=== PATIENT | female | born 1965 | race Caucasian/White ===

== ENCOUNTER 2019-12-09 13:31 | Outpatient (REF) | payer OTHER, SELFPAY ==
--- NOTE | 2019-12-09 | MM_ITS ---
EXAMINATION: MM DIAGNOSTIC DIGITAL BREAST TOMOSYNTHESIS, LEFT CLINICAL INFORMATION: Recall from screening for asymmetric density central left breast on CC view, suspected to represent probable summation artifact. COMPARISON: Mammography: 11/23/2019, 11/17/2018, 10/02/2017 TECHNIQUE: Digital breast tomosynthesis is performed. 2D images are generated from the tomosynthesis. The following views are obtained: Rolled CC x2, spot CC. FINDINGS: The breasts are heterogeneously dense, which may obscure small masses (ACR BI-RADS breast composition Category c). The additional views show no persistent asymmetric density. There is no mass or architectural abnormality. No developing density. Results are discussed with the patient at time of visit. IMPRESSION: Additional views show no persistent asymmetric density. No significant changes from prior studies. ASSESSMENT: BI-RADS 1: Negative RECOMMENDATION: Routine annual mammography screening. This patient's information was entered into a reminder system with a target due date for their next mammogram.
== END 2019-12-09 13:32 | disposition home or self-care (01) ==
LOC: HO.MAMMO 13:31
PROVIDERS: PCP Internal Medicine; Visit Provider Internal Medicine
DX: N64.89 Other specified disorders of breast (principal)
CPT/HCPCS: 77065

== ENCOUNTER 2020-01-10 14:01 | Outpatient (REF) | payer OTHER, SELFPAY ==
[2020-01-10 14:24] LABS: COVID-19 Test Negative (Negative); IDNOW Serial# 55D5AD1C
== END 2020-01-10 14:02 | disposition home or self-care (01) ==
LOC: HO.EMPCOV 14:01
PROVIDERS: Visit Provider Internal Medicine
DX: Z20.828 Contact with and (suspected) exposure to other viral communicable diseases (principal)
CPT/HCPCS: 87635; C9803

== ENCOUNTER 2020-01-25 08:40 | Outpatient (REF) | payer OTHER, SELFPAY ==
[2020-01-25 10:04] LABS: COVID-19 Test Negative (Negative); IDNOW Serial# 55D5AD1C
== END 2020-01-25 08:41 | disposition home or self-care (01) ==
LOC: HO.EMPCOV 08:40
PROVIDERS: Visit Provider Internal Medicine
DX: Z20.828 Contact with and (suspected) exposure to other viral communicable diseases (principal)
CPT/HCPCS: 87635; C9803

== ENCOUNTER 2020-02-28 11:19 | Outpatient (REF) | payer OTHER, SELFPAY ==
[2020-02-28 11:53] LABS: COVID-19 Test Negative (Negative); IDNOW Serial# 55D5AD1C
== END 2020-02-28 11:20 | disposition home or self-care (01) ==
LOC: HO.EMPCOV 11:19
PROVIDERS: Visit Provider Internal Medicine
DX: Z20.822 Contact with and (suspected) exposure to COVID-19 (principal)
CPT/HCPCS: 36415; 87635; C9803

== ENCOUNTER 2020-03-10 08:43 | Outpatient (REF) | payer OTHER, SELFPAY ==
[2020-03-10 09:01] LABS: COVID-19 Test Negative (Negative); IDNOW Serial# 55D5AD1C
== END 2020-03-10 08:44 | disposition home or self-care (01) ==
LOC: HO.EMPCOV 08:43
PROVIDERS: Visit Provider Internal Medicine
DX: Z20.822 Contact with and (suspected) exposure to COVID-19 (principal)
CPT/HCPCS: 36415; 87635; C9803

== ENCOUNTER 2020-05-04 08:54 | Outpatient (REF) | payer OTHER, SELFPAY ==
[2020-05-04 09:25] LABS: Mean Corpuscular Hemoglobin 31.8 pg (27.0-33.0); Red Cell Distribution Width 12.5 % (11.0-16.0)
[2020-05-04 09:27] LABS: Basophils Percent Auto 0.3 % (0-2); Eosinophils Absolute Auto 0.2 X10*3/uL (0.0-0.4); Eosinophils Percent Auto 2.6 % (0-4); Hematocrit 42.9 % (37-47); Hemoglobin 14.2 g/dl (12.0-16.0); Imm Gran Abs Auto 0.02 X10*3/uL (0.00-0.03); Imm Gran Pct Auto 0.3 % (0.0-0.4); Lymphocytes Absolute Auto 1.7 X10*3/uL (1.2-4.9); Lymphocytes Percent Auto 27.9 % (20-40); Mean Corpuscular HGB Conc 33.1 g/dl (31.0-35.0); Mean Platelet Volume 10.2 fL (9.4-12.3); Monocytes Absolute Auto 0.5 X10*3/uL (0.1-1.2); Monocytes Percent Auto 7.7 % (2-11); Neutrophils Absolute Auto 3.7 X10*3/uL (2.0-8.3); Neutrophils Percent Auto 61.2 % (45-73); Platelet Count 148 X10*3/uL (160-400); Red Blood Count 4.47 X10*6/uL (4.20-5.50); White Blood Count 6.1 X10*3/uL (4.8-10.8)
[2020-05-04 09:29] LABS: MANUAL DIFF FLAG NO
[2020-05-04 09:50] LABS: Alanine Aminotransferase 56 U/L (0-31); Albumin Level 4.3 g/dL (3.5-5.0); Alkaline Phosphatase 152 U/L (39-117); Aspartate Amino Transferase 33 U/L (5-31); Bilirubin Direct 0.3 mg/dL (0.0-0.5); Bilirubin Total 0.7 mg/dL (0.0-1.0); Total Protein 6.8 g/dL (6.5-8.0)
== END 2020-05-04 08:55 | disposition home or self-care (01) ==
LOC: HO.LAB 08:54
PROVIDERS: PCP Internal Medicine; Visit Provider Internal Medicine
DX: D47.3 Essential (hemorrhagic) thrombocythemia (principal); R79.89 Other specified abnormal findings of blood chemistry
CPT/HCPCS: 36415; 80076; 85025

== ENCOUNTER 2020-07-31 07:30 | Outpatient (REF) | payer OTHER, SELFPAY ==
[2020-07-31 09:20] LABS: Alanine Aminotransferase 30 U/L (0-31); Albumin Level 4.3 g/dL (3.5-5.0); Alkaline Phosphatase 127 U/L (39-117); Aspartate Amino Transferase 24 U/L (5-31); Bilirubin Direct 0.2 mg/dL (0.0-0.5); Bilirubin Total 0.8 mg/dL (0.0-1.0); Cholesterol 164 mg/dL; HDL Cholesterol 53 mg/dL; LDL Cholesterol Calculated 97 mg/dl; Total Protein 6.7 g/dL (6.5-8.0); Triglycerides 70 mg/dL
== END 2020-07-31 07:31 | disposition home or self-care (01) ==
LOC: HO.LAB 07:30
PROVIDERS: PCP Internal Medicine; Visit Provider Internal Medicine
DX: R79.89 Other specified abnormal findings of blood chemistry (principal); E78.9 Disorder of lipoprotein metabolism, unspecified
CPT/HCPCS: 36415; 80061; 80076

== ENCOUNTER → 2020-08-24 11:48 | Outpatient (BNVA) | payer OTHER, SELFPAY | PROVIDERS: PCP Internal Medicine; Referring Provider Internal Medicine; Visit Provider Surgery ==

== ENCOUNTER 2020-08-25 11:55 | Outpatient (REF) | payer OTHER, SELFPAY ==
[2020-08-25 13:00] LABS: Blood Urea Nitrogen 17 mg/dL (9-16); Estimated Glomerular Filt Rate > 60
== END 2020-08-25 11:56 | disposition home or self-care (01) ==
LOC: HO.LAB 11:55
PROVIDERS: PCP Internal Medicine; Visit Provider Surgery
DX: R19.09 Other intra-abdominal and pelvic swelling, mass and lump (principal)
CPT/HCPCS: 36415; 82565; 84520

== ENCOUNTER 2020-08-30 14:34 | Outpatient (REF) | payer OTHER, SELFPAY ==
--- NOTE | ~2020-08-30 | CT_ITS ---
EXAMINATION: CT PELVIS WITH CONTRAST CLINICAL INFORMATION: Swelling, mass or lump COMPARISON: None TECHNIQUE: Helical scanning was performed with submillimeter collimation through the pelvis with the use of oral contrast and during bolus intravenous injection of 85 mL of Omnipaque 350 intravenous contrast. Sagittal and coronal multiplanar 2-D reconstructions were obtained. This CT examination was performed using dose optimization techniques as appropriate, variously including the following: *Automated exposure control *Adjustment of mA and/or kV according to patient size (this includes techniques or standardized protocols for targeted exams where dose is matched to indication/reason for exam; i.e. extremities or head) *Use of iterative reconstruction technique DLP: 409 mGy-cm FINDINGS: There is a large amount stool in the colon suggestive of constipation. Visualized small and large bowel is otherwise unremarkable. The appendix is unremarkable. No hernia is seen. The uterus and adnexa are unremarkable. The bladder is unremarkable. No ascites is seen. There are no enlarged lymph nodes. In the region of palpable abnormality in the right groin there are 3 subcutaneous soft tissue masses. These each measure approximately 1 cm. These have differing attenuation and question small calcifications. This may represent lymph nodes. No left inguinal lymphadenopathy seen. There is degenerative disc disease at L5-S1. CT/CT pelvis w con IMPRESSION: 3 adjacent subcutaneous soft tissue masses in the right inguinal region, question representing lymph nodes. No hernia is seen. Stool throughout the colon suggestive of constipation.
[2020-08-30] MEDS: iohexoL 350 MG/ML 100 ML INFUS..BTL 85 ML IV (15:25)
== END 2020-08-30 14:35 | disposition home or self-care (01) ==
LOC: HO.CT 14:34
PROVIDERS: Visit Provider Surgery
DX: R19.09 Other intra-abdominal and pelvic swelling, mass and lump (principal)
CPT/HCPCS: 72193; Q9967

== ENCOUNTER 2020-08-31 15:31 | Outpatient (REF) | payer OTHER, SELFPAY | END 2020-08-31 15:32 | disposition home or self-care (01) | LOC: HO.LAB 15:31 | PROVIDERS: PCP Internal Medicine; Referring Provider Internal Medicine; Visit Provider Surgery | DX: R19.09 Other intra-abdominal and pelvic swelling, mass and lump (principal) | CPT/HCPCS: 10021; 88173; 88305 ==

== ENCOUNTER → 2020-09-18 08:45 | Outpatient (BNVA) | payer OTHER, SELFPAY | PROVIDERS: PCP Internal Medicine; Referring Provider Internal Medicine; Visit Provider Surgery ==

== ENCOUNTER 2020-09-29 08:45 | Day surgery (SDC) | payer OTHER, SELFPAY ==
[2020-09-22 14:51] VITALS: BMI 25.7
--- NOTE | 2020-09-28 08:33 | HO.ANESPROP2 ---
Documented by User: Lesleeher Hutsonney 09/28/20 08:34 HPI - Anesthesia Eval Consult details Narrative: 55yo F for Right Excision of Groin Mass PMFSH Active Problems Active Problems: All Active Problems (Updated 09/22/20 @ 14:51 by Breanne Casillas) Left otitis externa (Acute) Thrombocytosis (Acute) LFT elevation (Acute) Lipid disorder (Acute) Right otitis externa (Acute) Tinnitus (Acute) Lump in the groin (Acute) Hyperlipidemia (Acute) Right groin mass (Acute) Past Medical History Medical History COVID-19 vaccine series completed Hyperlipidemia Right groin mass Family History Family History Father Medical history non-contributory Mother Throat cancer Brother No problems noted. Sister Colitis Sister No problems noted. Maternal Grandmother Breast cancer Maternal Grandfather No problems noted. Paternal Grandmother No problems noted. Paternal Grandfather No problems noted. Maternal Aunt No problems noted. Son No problems noted. Son No problems noted. Other Substance use disorder Surgical History Surgical History H/O colonoscopy History of sinus surgery History of tonsillectomy History of umbilical hernia Social History Social History Housing: House Patient Tobacco Use Status: Never used Tobacco Second Hand Smoke Exposure: Yes Use of substances other than those prescribed or required for medical reasons: No Have you been hit, kicked, punched, or otherwise hurt by someone within the past year? If so, by whom?: No Are you DNR?: No Advance Directives Information Provided: No Current occupational status: employed Meds Allergies Allergy/AdvReac Type Severity Reaction Status Date / Time penicillin V Allergy Severe anaphylaxis Verified 09/22/20 14:51 Home Medications Medication Instructions Recorded Confirmed Last Taken Type atorvastatin 10 mg tablet 10 mg PO DAILY 08/22/20 09/22/20 Unknown History multivitamin (Daily Multi-Vitamin) 1 tab PO DAILY 08/22/20 09/22/20 Unknown History loratadine 10 mg tablet 10 mg PO DAILY 09/22/20 09/22/20 Unknown History Exam Exam Date and Time: September 28, 2020 0833 Height,Weight and Vital Signs: Height 5 ft 3 in Weight 66 kg Assessment and Plan Assessment Anesthesia Assessment: Chart Reviewed Documented by User: Brittanie Abrams MD 09/29/20 10:15 [facility] Past Medical History Medical History COVID-19 vaccine series completed Hyperlipidemia Right groin mass Family History Family History Father Medical history non-contributory Mother Throat cancer Brother No problems noted. Sister Colitis Sister No problems noted. Maternal Grandmother Breast cancer Maternal Grandfather No problems noted. Paternal Grandmother No problems noted. Paternal Grandfather No problems noted. Maternal Aunt No problems noted. Son No problems noted. Son No problems noted. Other Substance use disorder Surgical History Surgical History H/O colonoscopy History of sinus surgery History of tonsillectomy History of umbilical hernia History of Problems with Anesthesia: No Social History Social History Housing: House Patient Tobacco Use Status: Never used Tobacco Second Hand Smoke Exposure: Yes Use of substances other than those prescribed or required for medical reasons: No Have you been hit, kicked, punched, or otherwise hurt by someone within the past year? If so, by whom?: No Are you DNR?: No Advance Directives Information Provided: No Current occupational status: employed Meds Allergies Allergy/AdvReac Type Severity Reaction Status Date / Time penicillin V Allergy Severe anaphylaxis Verified 09/22/20 14:51 Home Medications Medication Instructions Recorded Confirmed Last Taken Type atorvastatin 10 mg tablet 10 mg PO DAILY 08/22/20 09/22/20 Unknown History multivitamin (Daily Multi-Vitamin) 1 tab PO DAILY 08/22/20 09/22/20 Unknown History loratadine 10 mg tablet 10 mg PO DAILY 09/22/20 09/22/20 Unknown History Exam Airway Mallampati Class: II TM Dist: >3cm Neck ROM: Full Loose/Missing/Broken Teeth: No Heart: RRR Lungs: CTA Assessment and Plan Assessment Anesthesia Assessment: Anesthesia Plan Discussed Final Anesthetic Review History of Problems with Anesthesia: No NPO: Yes ASA Class: II Final Preanesthetic Review: Meds/Allgs Chart Reviewed, Consent Obtained/Reviewed and Anes Risks/Benef Reviewed Patient Risk: Low Procedure Risk: Low Anesthetic Plan Anesthetic Plan: MAC: Disposition: Standard PACU
[2020-09-29 09:00] VITALS: BP 118/66; PULSE 80; RESP 18; TEMP 37.1; O2SAT 99
[2020-09-29 09:07] VITALS: BMI 25.7
[2020-09-29] MEDS: Lactated Ringers 1,000 ML 100 ML IVCONT (09:16)
--- NOTE | 2020-09-29 11:19 | W.PM.OPN ---
Operative Note Operative Note Date of Service: 09/29/20 Narrative: Preop diagnosis: Right groin mass Postop diagnosis: Right groin mass Procedure: Excision biopsy right groin mass under anesthesia Surgeon: Luis Fernando Valenzuela MD 1st dental assistant medical assistant: LAKE Mondragon Patient is a 55 year female who has had a persistent right groin mass with a CAT scan showing an enlarged lymph node. This had initially decreased in size for a while but has persisted. She therefore wanted to proceed with excision biopsy as the needle biopsy was indeterminate. She understood the technique of the procedure as well as the risks, benefits, and alternatives She was brought to the operating room placed supine on table under monitored anesthesia care. The right groin prepped and that in usual sterile fashion. A surgical time-out was done. The patient received cefazolin 2 g IV preoperatively There was note of a palpable mass on the right groin which was a little mobile, although with vague This measured to be about 2 cm. I made an incision on the skin overlying this mass after infiltration withlidocaine 1%. This incision was made using a blade 15. This was carried down through the full-thickness of the skin and subcutaneous fat with electrocautery through the fascia until was I able to visualize what appeared to be a necrotic lymph node. I sharply dissected this mass which had some chronic inflammatory changes with scarringng using electrocautery with the use of the right angle clamp as well. This was carefully dissected off of the posterior margins. This was sent as specimen. Again this mass appeared to be a necrotic lymph node. I irrigated the area of excision. I closed the subcutaneous layer with Dexon 3-0 interrupted sutures. Skin closure was achieved with Dexon 4-0 subcuticular running stitch. The area was infiltrated with Marcaine 0.5% for postop analgesia. Steri-Strips and dressings were applied. The procedure was completed The patient tolerated well. The were no complications noted. Estimated blood loss was about 5 cc. The patient was transferred to the recovery room with stable vital signs.
--- NOTE | 2020-09-29 11:24 | PM.OP ---
Brief Operative Note Date of Service: 09/29/20 Pre-op diagnosis: Right groin mass Post-op diagnosis: same Procedure: Excision of right groin mass Surgeon: Luis Fernando Valenzuela MD Anesthesia: MAC Was an Guitar Maker used for this Procedure?: Yes Guitar Maker: Pamela Mondragon Estimated blood loss (mL): 5 Pathology: other (Right groin mass) Condition: stable Disposition: PACU
[2020-09-29 11:31] VITALS: BP 105/53; PULSE 52; RESP 16; TEMP 36.2; O2SAT 99
[2020-09-29 11:38] VITALS: PULSE 70; RESP 16; O2SAT 98
[2020-09-29 11:46] VITALS: BP 111/60; PULSE 58; RESP 17; TEMP 36.2; O2SAT 98
== END 2020-09-29 12:44 | disposition home or self-care (01) ==
PROVIDERS: PCP Internal Medicine; Visit Provider Surgery
PROC: (CPT 11402; principal; 2020-09-29 10:20)
DX: R19.09 Other intra-abdominal and pelvic swelling, mass and lump (principal); E78.5 Hyperlipidemia, unspecified; Z77.22 Contact with and (suspected) exposure to environmental tobacco smoke (acute) (chronic); Z88.0 Allergy status to penicillin; Z79.899 Other long term (current) drug therapy
CPT/HCPCS: 11402; 12031; 36415; 87556; 88304; 88305; 88312; J0690; J1100; J2250; J2370; J2405; J3010

== ENCOUNTER → 2020-10-12 15:11 | Outpatient (BNVA) | payer OTHER, SELFPAY | PROVIDERS: PCP Internal Medicine; Referring Provider Internal Medicine; Visit Provider Surgery ==

== ENCOUNTER 2020-12-21 07:26 | Outpatient (REF) | payer OTHER, SELFPAY ==
--- NOTE | ~2020-12-21 | MM_ITS ---
EXAMINATION: MM SCREENING DIGITAL BREAST TOMOSYNTHESIS, BILATERAL CLINICAL INFORMATION: Screening. Asymptomatic. The lifetime risk of breast cancer based on the Tyrer-Cuzick Model is 13.9%. COMPARISON: Mammography: December 09, 2019 and studies dating back to May 21, 2013. TECHNIQUE: Digital breast tomosynthesis is performed in both the craniocaudal and mediolateral oblique views along with computer-aided detection (CAD). Synthesized 2D images are generated from the tomosynthesis. FINDINGS: The breasts are extremely dense, which lowers the sensitivity of mammography (ACR BI-RADS breast composition Category d). There are no significant masses, abnormal calcifications, or other abnormalities. MM/MM tomosynthesis screening BI IMPRESSION: There are no significant changes from prior study. ASSESSMENT: BI-RADS 1: Negative RECOMMENDATION: Routine annual mammography screening. This patient's information was entered into a reminder system with a target due date for their next mammogram.
== END 2020-12-21 07:27 | disposition home or self-care (01) ==
LOC: HO.MAMMO 07:26
PROVIDERS: Visit Provider Internal Medicine
DX: Z12.31 Encounter for screening mammogram for malignant neoplasm of breast (principal)
CPT/HCPCS: 77063; 77067

== ENCOUNTER 2021-01-31 07:09 | Outpatient (REF) | payer OTHER, SELFPAY ==
[2021-01-31 07:26] LABS: MANUAL DIFF FLAG NO
[2021-01-31 08:04] LABS: Basophils Percent Auto 0.3 % (0-2); Eosinophils Absolute Auto 0.3 X10*3/uL (0.0-0.4); Eosinophils Percent Auto 5.1 % (0-4); Hematocrit 43.3 % (37.0-47.0); Hemoglobin 14.3 g/dl (12.0-16.0); Imm Gran Abs Auto 0.02 X10*3/uL (0.00-0.03); Imm Gran Pct Auto 0.3 % (0.0-0.4); Lymphocytes Absolute Auto 1.7 X10*3/uL (1.2-4.9); Lymphocytes Percent Auto 29.3 % (20-40); Mean Corpuscular Hemoglobin 31.6 pg (27.0-33.0); Mean Corpuscular Volume 95.8 fL (80.0-98.0); Mean Platelet Volume 10.1 fL (9.4-12.3); Monocytes Absolute Auto 0.4 X10*3/uL (0.1-1.2); Monocytes Percent Auto 7.3 % (2-11); Neutrophils Absolute Auto 3.4 x10*3/uL (2.0-8.3); Neutrophils Percent Auto 57.7 % (45-73); Platelet Count 142 X10*3/uL (160-400); Red Blood Count 4.52 X10*6/uL (4.20-5.50); Red Cell Distribution Width 12.8 % (11.0-16.0); White Blood Count 5.9 X10*3/uL (4.8-10.8)
[2021-01-31 08:26] LABS: Alanine Aminotransferase 34 U/L (0-31); Albumin Level 4.3 g/dL (3.5-5.0); Alkaline Phosphatase 121 U/L (39-117); Aspartate Amino Transferase 26 U/L (5-31); Bilirubin Direct 0.2 mg/dL (0.0-0.5); Bilirubin Total 0.4 mg/dL (0.0-1.0); Cholesterol 161 mg/dL; HDL Cholesterol 54 mg/dL; LDL Cholesterol Calculated 89 mg/dl; Total Protein 6.7 g/dL (6.5-8.0); Triglycerides 91 mg/dL
== END 2021-01-31 07:10 | disposition home or self-care (01) ==
LOC: HO.LAB 07:09
PROVIDERS: PCP Internal Medicine; Visit Provider Internal Medicine
DX: H93.19 Tinnitus, unspecified ear (principal); R79.89 Other specified abnormal findings of blood chemistry; D47.3 Essential (hemorrhagic) thrombocythemia; E78.9 Disorder of lipoprotein metabolism, unspecified
CPT/HCPCS: 36415; 80061; 80076; 85025

== ENCOUNTER → 2021-03-30 08:32 | Outpatient (REF) | payer OTHER, SELFPAY ==
--- NOTE | 2021-03-30 08:36 | CA_ITS ---
Acquisition Time: 2021-03-30 08:35:12 Total Exercise Time: 00:07:08 Test Indications: Abn EKG, CP Medications: Protocol: [place] Max HR: 141 BPM 86% of Pred: 163 BPM Max BP: 140/078 mmHG Max Work Load: 8.7 METS Exercise stress test with exercise 7 min 8 sec of [place] protocol, with mild sob, no chest discomfort, without arrythmia, with normotensive response to exercise, without EKG changes meeting criteria for ischemia. Test reviewed with Dr Crespo. Referred By: Filomena Roberts Overread By: KWAN WEBSTER
--- NOTE | 2021-03-30 14:00 | CA_ITS ---
Transthoracic Echocardiogram Patient (Last, First, Middle): Deepali Savage L Gender: Female Date of : 1965 Age: 55 Procedure Date: 03/30/2021 Procedure Type: Transthoracic Echocardiogram Location: OP Height: 160.02 cm Weight: 65.77 kg BSA: 1.69 m2 Heart Rate: bpm BP: 122 / 60 mmHg Forest Management Teacher: Referring MD: Filomena Roberts MD Symptoms: R94.31 - Abnormal electrocardiogram [ECG] [EKG] Study Quality: Fair ECG Rhythm: Sinus Conclusions: - The left ventricular systolic function is normal. The calculated ejection fraction is 70% by biplane method. - No obvious valvular pathology seen on this study. Findings Left Ventricle Normal left ventricular cavity size. There is normal left ventricular wall thickness. The left ventricular systolic function is normal. The calculated ejection fraction is 70% by biplane method. There is no evidence of regional wall motion abnormalities. Diastolic function is normal for age. Right Ventricle Normal right ventricular cavity size and systolic function. Atria Both atria are normal in size. Aortic Valve The aortic valve was not well visualized. There is no aortic valve stenosis. The mean gradient is 4 mmHg. There is no aortic valve regurgitation. Mitral Valve The mitral valve appears normal. There is no mitral valve regurgitation. There is no mitral valve stenosis. Pulmonic Valve The pulmonic valve was not well visualized. Tricuspid Valve Normal tricuspid valve structure. There is no tricuspid valve regurgitation. Tricuspid regurgitation envelope is inadequate for calculation of right ventricular systolic pressure. Great Vessels The aortic annulus, sinuses of valsalva, and asc aorta are normal in size. Venous The inferior vena cava is normal in size and collapses greater than 50% with inspiration. Pericardium/Pleural There is no evidence of pericardial effusion. Prior Study Comparison No prior study available for comparison. Recommendations, Care & Conclusions No obvious valvular pathology seen on this study. Measurements 2D Linear Measurements Ao Root: 3.00 2.1-3.5 cm LVOT Diam: 2.00 3.0+(-)1.3 cm 2D Systolic Function EF 4C: 65.20 >55% EF 2C: 72.40 >55% EF BiP: 69.50 >55% Mitral Valve MV Pk E: 0.75 MV PK A: 0.60 MV Decel Time: 181.00 E/A: 1.30 E'Lateral: 14.50 E'Medial: 7.40 E/E' Med: 10.20 E/E' Lat: 5.20 PHT: 53.00 MVA PHT: 4.15 Decel [place]: 4.16 Aortic Valve AoV Pk Bridger: 1.29 AoV Mn Bridger: 0.89 AoV VTI: 0.32 AoV Pk Grad: 7.00 Aov Mn Grad: 4.00 NANCIE Cont.VTI: 2.47 LVOT LVOT Pk Bridger: 1.10 LVOT Mn Bridger: 0.71 LVOT VTI: 0.25 LVOT Pk Grad: 5.00 LVOT Mn Grad: 2.00 LVOT Diam: 2.00 LVOT Area: 3.14 Diastolic Function MV Pk E: 0.75 MV Pk A: 0.60 E/A: 1.30 E'Medial: 7.40 E/E' Med: 10.20 E' Laterial: 14.50 E/E' Lat: 5.20 Right Ventricle TAPSE (mm): 29.00 TVS' Bridger: 12.00 Tricuspid Valve TR Pk Bridger: 1.93 TR Pk Grad: 15.00 Great Vessels Aorta Ao Root-2D: 3.00 2.0-3.7 cm Ao Asc: 2.70 2.1-3.4 cm Pulmonary Valve PV Pk Bridger: 0.92 Peak PV Grad: 3.00 Updated in Other Vendor System with Status of Final Florentin Crespo MD electronically signed on 03/31/2021 11:33:12 AM with status of Final
== END ==
LOC: HO.CARD 08:32
PROVIDERS: PCP Internal Medicine; Visit Provider Internal Medicine
DX: R07.89 Other chest pain (principal); R94.31 Abnormal electrocardiogram [ECG] [EKG]; E78.9 Disorder of lipoprotein metabolism, unspecified
CPT/HCPCS: 93017; 93306

== ENCOUNTER 2021-08-01 07:14 | Outpatient (REF) | payer OTHER, SELFPAY ==
[2021-08-01 07:30] LABS: MANUAL DIFF FLAG NO
[2021-08-01 07:43] LABS: Basophils Percent Auto 0.3 % (0-2); Eosinophils Absolute Auto 0.3 X10*3/uL (0.0-0.4); Eosinophils Percent Auto 4.7 % (0-4); Hematocrit 43.3 % (37.0-47.0); Hemoglobin 14.4 g/dl (12.0-16.0); Imm Gran Abs Auto 0.02 X10*3/uL (0.00-0.03); Imm Gran Pct Auto 0.3 % (0.0-0.4); Lymphocytes Absolute Auto 1.8 X10*3/uL (1.2-4.9); Lymphocytes Percent Auto 30.6 % (20-40); Mean Corpuscular HGB Conc 33.3 g/dl (31.0-35.0); Mean Corpuscular Hemoglobin 31.4 pg (27.0-33.0); Mean Corpuscular Volume 94.5 fL (80.0-98.0); Monocytes Absolute Auto 0.5 X10*3/uL (0.1-1.2); Monocytes Percent Auto 8.2 % (2-11); Neutrophils Absolute Auto 3.2 x10*3/uL (2.0-8.3); Neutrophils Percent Auto 55.9 % (45-73); Platelet Count 150 X10*3/uL (160-400); Red Blood Count 4.58 X10*6/uL (4.20-5.50); Red Cell Distribution Width 13.1 % (11.0-16.0); White Blood Count 5.7 X10*3/uL (4.8-10.8)
[2021-08-01 08:12] LABS: Alanine Aminotransferase 28 U/L (0-31); Albumin Level 4.4 g/dL (3.5-5.0); Alkaline Phosphatase 130 U/L (39-117); Anion Gap 10 (12-20); Aspartate Amino Transferase 24 U/L (5-31); Bilirubin Direct 0.2 mg/dL (0.0-0.5); Bilirubin Total 0.6 mg/dL (0.0-1.0); Blood Urea Nitrogen 18 mg/dL (9-16); Calcium 9.5 mg/dL (8.4-10.2); Carbon Dioxide 30 mmol/L (22-29); Chloride 107 mmol/L (96-108); Cholesterol 166 mg/dL; Estimated Glomerular Filt Rate > 60; Glucose Fasting 104 mg/dL (60-99); HDL Cholesterol 56 mg/dL; LDL Cholesterol Calculated 97 mg/dl; Potassium 4.2 mmol/L (3.3-5.1); Sodium 143 mmol/L (135-145); Total Protein 6.9 g/dL (6.5-8.0); Triglycerides 68 mg/dL
[2021-08-03 05:46] LABS: Herpes Simplex Type 2 IgG 1.01 index
== END 2021-08-01 07:15 | disposition home or self-care (01) ==
LOC: HO.LAB 07:14
PROVIDERS: PCP Internal Medicine; Visit Provider Internal Medicine
DX: R79.89 Other specified abnormal findings of blood chemistry (principal); D69.6 Thrombocytopenia, unspecified; B00.1 Herpesviral vesicular dermatitis; E78.9 Disorder of lipoprotein metabolism, unspecified
CPT/HCPCS: 36415; 80053; 80061; 80076; 85025; 86695; 86696

== ENCOUNTER 2021-12-27 07:27 | Outpatient (REF) | payer OTHER, SELFPAY ==
--- NOTE | ~2021-12-27 | MM_ITS ---
EXAMINATION: MM SCREENING DIGITAL BREAST TOMOSYNTHESIS, BILATERAL CLINICAL INFORMATION: Screening. Asymptomatic. COMPARISON: Mammography: 12/21/2020, 12/09/2019, 11/23/2019, 11/17/2018 TECHNIQUE: Digital breast tomosynthesis is performed in both the craniocaudal and mediolateral oblique views along with computer-aided detection (CAD). Synthesized 2D images are generated from the tomosynthesis. FINDINGS: The breasts are heterogeneously dense, which may obscure small masses (ACR BI-RADS breast composition Category c). Breast tissue composition borders on average fibroglandular. There are no significant masses, abnormal calcifications, or other abnormalities. Parenchymal pattern is similar to prior studies. There is no developing density or architectural abnormality. The axilla and skin contours are unremarkable. No significant changes. MM/MM tomosynthesis screening BI IMPRESSION: No mammographic evidence of malignancy. ASSESSMENT: BI-RADS 1: Negative RECOMMENDATION: Routine annual mammography screening. This patient's information was entered into a reminder system with a target due date for their next mammogram.
== END 2021-12-27 07:28 | disposition home or self-care (01) ==
LOC: HO.MAMMO 07:27
PROVIDERS: Visit Provider Internal Medicine
DX: Z12.31 Encounter for screening mammogram for malignant neoplasm of breast (principal)
CPT/HCPCS: 77063; 77067

== ENCOUNTER 2022-02-22 07:06 | Outpatient (REF) | payer OTHER, SELFPAY ==
[2022-02-22 07:19] LABS: MANUAL DIFF FLAG NO
[2022-02-22 07:27] LABS: Basophils Percent Auto 0.5 % (0-2); Eosinophils Absolute Auto 0.4 X10*3/uL (0.0-0.4); Eosinophils Percent Auto 7.3 % (0-4); Hematocrit 42.2 % (37.0-47.0); Hemoglobin 13.9 g/dl (12.0-16.0); Imm Gran Abs Auto 0.01 X10*3/uL (0.00-0.03); Imm Gran Pct Auto 0.2 % (0.0-0.4); Lymphocytes Absolute Auto 1.8 X10*3/uL (1.2-4.9); Lymphocytes Percent Auto 30.7 % (20-40); Mean Corpuscular HGB Conc 32.9 g/dl (31.0-35.0); Mean Corpuscular Hemoglobin 31.4 pg (27.0-33.0); Mean Corpuscular Volume 95.5 fL (80.0-98.0); Mean Platelet Volume 9.8 fL (9.4-12.3); Monocytes Absolute Auto 0.5 X10*3/uL (0.1-1.2); Monocytes Percent Auto 8.9 % (2-11); Neutrophils Percent Auto 52.4 % (45-73); Platelet Count 129 X10*3/uL (160-400); Red Blood Count 4.42 X10*6/uL (4.20-5.50); Red Cell Distribution Width 12.5 % (11.0-16.0); White Blood Count 5.7 X10*3/uL (4.8-10.8)
[2022-02-22 07:35] LABS: Estimated Average Glucose 100 mg/dL; Hemoglobin A1c % 5.1 %
[2022-02-22 07:53] LABS: Alanine Aminotransferase 24 U/L (0-31); Albumin Level 4.3 g/dL (3.5-5.0); Alkaline Phosphatase 127 U/L (39-117); Anion Gap 9 (12-20); Aspartate Amino Transferase 21 U/L (5-31); Bilirubin Total 0.5 mg/dL (0.0-1.0); Blood Urea Nitrogen 15 mg/dL (9-16); Calcium 9.2 mg/dL (8.4-10.2); Carbon Dioxide 28 mmol/L (22-29); Chloride 110 mmol/L (96-108); Cholesterol 166 mg/dL; Estimated Glomerular Filt Rate > 60; Glucose Fasting 112 mg/dL (60-99); HDL Cholesterol 54 mg/dL; LDL Cholesterol Calculated 99 mg/dl; Potassium 4.6 mmol/L (3.3-5.1); Sodium 142 mmol/L (135-145); Total Protein 6.6 g/dL (6.5-8.0); Triglycerides 69 mg/dL
== END 2022-02-22 07:07 | disposition home or self-care (01) ==
LOC: HO.LAB 07:06
PROVIDERS: PCP Internal Medicine; Visit Provider Internal Medicine
DX: D69.6 Thrombocytopenia, unspecified (principal); E78.5 Hyperlipidemia, unspecified; R73.03 Prediabetes; R79.89 Other specified abnormal findings of blood chemistry; Z91.09 Other allergy status, other than to drugs and biological substances
CPT/HCPCS: 36415; 80053; 80061; 83036; 85025

== ENCOUNTER 2022-08-05 07:24 | Outpatient (REF) | payer OTHER, SELFPAY ==
[2022-08-05 07:36] LABS: MANUAL DIFF FLAG NO
[2022-08-05 07:41] LABS: Basophils Percent Auto 0.3 % (0-2); Eosinophils Absolute Auto 0.3 X10*3/uL (0.0-0.4); Eosinophils Percent Auto 4.1 % (0-4); Hemoglobin 14.9 g/dl (12.0-16.0); Imm Gran Abs Auto 0.03 X10*3/uL (0.00-0.03); Imm Gran Pct Auto 0.5 % (0.0-0.4); Lymphocytes Absolute Auto 1.9 X10*3/uL (1.2-4.9); Lymphocytes Percent Auto 30.9 % (20-40); Mean Corpuscular HGB Conc 33.1 g/dl (31.0-35.0); Mean Corpuscular Hemoglobin 31.5 pg (27.0-33.0); Mean Corpuscular Volume 95.1 fL (80.0-98.0); Mean Platelet Volume 10.1 fL (9.4-12.3); Monocytes Absolute Auto 0.5 X10*3/uL (0.1-1.2); Monocytes Percent Auto 7.4 % (2-11); Neutrophils Absolute Auto 3.4 x10*3/uL (2.0-8.3); Neutrophils Percent Auto 56.8 % (45-73); Platelet Count 144 X10*3/uL (160-400); Red Blood Count 4.73 X10*6/uL (4.20-5.50); Red Cell Distribution Width 12.8 % (11.0-16.0); White Blood Count 6.1 X10*3/uL (4.8-10.8)
[2022-08-05 07:55] LABS: Estimated Average Glucose 100 mg/dL; Hemoglobin A1c % 5.1 %
[2022-08-05 08:05] LABS: Alanine Aminotransferase 22 U/L (0-31); Albumin Level 4.5 g/dL (3.5-5.0); Alkaline Phosphatase 114 U/L (39-117); Anion Gap 12 (12-20); Aspartate Amino Transferase 22 U/L (5-31); Bilirubin Total 0.8 mg/dL (0.0-1.0); Blood Urea Nitrogen 27 mg/dL (9-16); Calcium 9.7 mg/dL (8.4-10.2); Carbon Dioxide 28 mmol/L (22-29); Chloride 107 mmol/L (96-108); Cholesterol 159 mg/dL; Estimated Glomerular Filt Rate > 60; Glucose Fasting 92 mg/dL (60-99); HDL Cholesterol 54 mg/dL; LDL Cholesterol Calculated 92 mg/dl; Potassium 4.2 mmol/L (3.3-5.1); Sodium 143 mmol/L (135-145); Triglycerides 68 mg/dL
== END 2022-08-05 07:25 | disposition home or self-care (01) ==
LOC: HO.LAB 07:24
PROVIDERS: PCP Internal Medicine; Visit Provider Internal Medicine
DX: Z00.01 Encounter for general adult medical examination with abnormal findings (principal); E78.9 Disorder of lipoprotein metabolism, unspecified; H93.19 Tinnitus, unspecified ear; R73.03 Prediabetes; Z91.09 Other allergy status, other than to drugs and biological substances
CPT/HCPCS: 36415; 80053; 80061; 83036; 85025

== ENCOUNTER 2022-12-27 15:47 | Outpatient (AMB) | payer OTHER, SELFPAY ==
[2022-12-27 15:50] VITALS: BP 104/62; PULSE 67; O2SAT 97; BMI 25.4
--- NOTE | 2022-12-27 15:50 | MHC.PC.OV ---
Vital Signs 12/27/22 15:50 Height 5 ft 3 in Weight 143 lb 4 oz BMI 25.4 BP 104/62 Blood Pressure Location Rt brachial Position Sitting Pulse 67 Pulse Source Pulse Oximeter Pulse Oximetry (%) 97 Oxygen Delivery Method Room Air Intake Visit Reasons: 6 month Follow up Allergies penicillin V Allergy (Severe, Verified 12/27/22 15:50) anaphylaxis Medication List - Last Reconciled 12/27/22 by Filomena Roberts MD atorvastatin 10 mg PO DAILY 90 days cholecalciferol (vitamin D3) 25 mcg PO DAILY ibuprofen 600 mg PO Q6H PRN loratadine 10 mg PO DAILY multivitamin (Daily Multi-Vitamin tablet) 1 tab PO DAILY valacyclovir 500 mg PO DAILY 90 days Tobacco use date assessed: 12/27/22 Dental Screening Dental Screen Date: 12/27/22 Did you have a dental visit in the last 12 months?: Yes Did you have a dental problem in the last 6 months where you did not have access to dental care?: No Was dental information given to patient?: Patient has dentist HPI 6 month Follow up HPI Details Patient is 57-year-old pleasant female came in today for her regular 6 month follow-up appointment Labs were done July of this year next set of lab is due in January Lipid disorder: Patient is on atorvastatin 10 mg and is tolerating without any side effects She is also prediabetic and is controlling her diet hemoglobin A1c was in 5 range Patient have chronic thrombocytopenia which is stable Recurrent cold sores: Valacyclovir as needed refill sent Allergies: Patient is taking loratadine however tells me that her allergies to act up every now and then But she is not reluctant to add another medication light montelukast at this time. Follow-up in June for physical exam [facility] Medical History COVID-19 vaccine series completed Hyperlipidemia Right groin mass Surgical History H/O colonoscopy History of sinus surgery History of tonsillectomy History of umbilical hernia Family History Father Medical history non-contributory Mother Throat cancer Brother No problems noted. Sister Colitis Sister No problems noted. Maternal Grandmother Breast cancer Maternal Grandfather No problems noted. Paternal Grandmother No problems noted. Paternal Grandfather No problems noted. Maternal Aunt No problems noted. Son No problems noted. Son No problems noted. Other Substance use disorder Social History Housing: House Patient Tobacco Use Status: Never used Tobacco e-Cigarette/Vaping Use: Never Used Second Hand Smoke Exposure: Yes service: No Current occupational status: employed Cognitive needs: No Hearing needs: No Vision needs: Yes Questionnaire PHQ-9 Over the last 2 weeks, how often have you been bothered by any of the following problems? 1. Little interest or pleasure in doing things: not at all 2. Feeling down, depressed, or hopeless: not at all 3. Trouble falling or staying asleep, or sleeping too much: not at all 4. Feeling tired or having little energy: not at all 5. Poor appetite or overeating: not at all 6. Feeling bad about yourself - or that you are a failure or have let yourself or your family down: not at all 7. Trouble concentrating on things, such as reading the newspaper or watching television: not at all 8. Moving or speaking so slowly that other people could have noticed. Or the opposite - being so fidgety or restless that you have been moving around a lot more than usual: not at all 9. Thoughts that you would be better off or of hurting yourself in some way: not at all Total score: 0 Depression Screening Interpretation: Negative Depression Screening Done: Yes 56419 - PHQ-9 Billing: Yes Source: Developed by Drs. Suleman Huber, Ariana Arreguin, Luis Armando Mcmahan and colleagues, with an educational kishore from [employer]. Thrive Questionnaire Date Thrive assessed: 06/25/22 AUDIT C Alcohol Use Questionnaire (AUDIT-C) 1. How often do you have a drink containing alcohol?: Monthly or less 2. How many drinks containing alcohol do you have on a typical day when you are drinking?: 1 or 2 3. How often do you have six or more drinks on one occasion?: Never Total Score: 1 Score Reviewed/Action Taken: Yes JASS-7 AMB Questionnaire JASS-7 Date JASS - 7 assessed: 06/25/22 Source: Developed by Drs. Suleman Huber, Ariana Arreguin, Luis Armando Mcmahan and colleagues, with an educational kishore from [employer]. Review of Systems Const Denies chills and Denies fever(s) ENT Denies epistaxis and Denies nasal discharge Card Denies chest pain Resp Denies chest congestion, Denies cough and Denies hemoptysis GI Denies diarrhea and Denies nausea Skin/Breast Denies rash Neuro Reports no additional complaints Psych Reports no additional complaints Endo Reports no additional complaints Physical exam (Primary Care) Vital Signs: Last Vital Signs Pulse 67 12/27/22 15:50 BP 104/62 12/27/22 15:50 Pulse Ox 97 12/27/22 15:50 Oxygen Delivery Method Room Air 12/27/22 15:50 BMI result Body Mass Index 25.4 Tobacco/Smoking Status: Tobacco use Status Tobacco use date assessed 12/27/22 12/27/22 15:56 Patient Tobacco Use Status Never used Tobacco 12/27/22 15:50 e-Cigarette/Vaping Use Never Used 12/27/22 15:56 PHQ-9: PHQ-9 Score PHQ-9: Total score 0 12/27/22 16:00 Depression Screening Interpretation: Negative Thrive Assessment: Date of Thrive Assessment Date Thrive assessed 06/25/22 12/27/22 15:50 Const General: cooperative, comfortable and no acute distress Orientation/consciousness: patient oriented x3 HENMT Head: Yes normocephalic Eyes General: appearance normal, both eyes and all related structures Neck Neck: Yes supple Resp Effort & Inspection: normal respiratory effort, no cough and no stridor Cardio Rhythm: regular rhythm Heart sounds: S1 normal heart sound present and S2 normal heart sound present Skin General skin exam: turgor normal Neuro General: patient oriented x3, tone normal and moves all extremities Extrem Right lower extremity: no edema Left lower extremity: no edema Assessment and Plan Assessment & Plan (1) Thrombocytopenia: Code(s): D69.6 - Thrombocytopenia, unspecified (2) Lipid disorder: Code(s): E78.9 - Disorder of lipoprotein metabolism, unspecified (3) Pre-diabetes: Code(s): R73.03 - Prediabetes (4) Environmental allergies: Code(s): Z91.09 - Other allergy status, other than to drugs and biological substances (5) Back muscle spasm: Code(s): M62.830 - Muscle spasm of back (6) 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 Plan Patient is 57-year-old pleasant female came in today for her regular 6 month follow-up appointment Labs were done July of this year next set of lab is due in January Lipid disorder: Patient is on atorvastatin 10 mg and is tolerating without any side effects She is also prediabetic and is controlling her diet hemoglobin A1c was in 5 range Patient have chronic thrombocytopenia which is stable Recurrent cold sores: Valacyclovir as needed refill sent Allergies: Patient is taking loratadine however tells me that her allergies to act up every now and then But she is not reluctant to add another medication light montelukast at this time. Back spasms: Local message is helping, also back exercises will help Follow-up in June for physical exam Medications: New loratadine 10 mg PO DAILY 90 tabs 1RF cholecalciferol (vitamin D3) 25 mcg PO DAILY 90 caps 1RF multivitamin (Daily Multi-Vitamin tablet) 1 tab PO DAILY 90 tabs 1RF Refilled atorvastatin 10 mg PO DAILY 90 days 90 tabs 1RF valacyclovir 500 mg PO DAILY 90 days 90 tabs 1RF Coding Level of Care Code Est Pt Level 3 (89130) Diagnoses Thrombocytopenia D69.6 Lipid disorder E78.9 Pre-diabetes R73.03 Environmental allergies Z91.09 Back muscle spasm M62.830 Recurrent cold sores B00.1
== END 2022-12-27 16:50 | disposition home or self-care (01) ==
PROVIDERS: Visit Provider Internal Medicine
DX: D69.6 Thrombocytopenia, unspecified (principal); E78.9 Disorder of lipoprotein metabolism, unspecified; R73.03 Prediabetes; Z91.09 Other allergy status, other than to drugs and biological substances; M62.830 Muscle spasm of back; B00.1 Herpesviral vesicular dermatitis
CPT/HCPCS: 99213

== ENCOUNTER 2023-01-02 07:25 | Outpatient (REF) | payer OTHER, SELFPAY | END 2023-01-02 07:26 | disposition home or self-care (01) | LOC: HO.MAMMO 07:25 | PROVIDERS: PCP Internal Medicine; Visit Provider Internal Medicine | DX: Z12.31 Encounter for screening mammogram for malignant neoplasm of breast (principal) | CPT/HCPCS: 77063; 77067 ==

== ENCOUNTER → 2023-01-02 07:30 | Outpatient (BNV) | payer OTHER, SELFPAY | PROVIDERS: PCP Internal Medicine; Visit Provider Radiology Diagnostic Radiology | DX: Z12.31 Encounter for screening mammogram for malignant neoplasm of breast (principal) | CPT/HCPCS: 77063; 77067 ==

== ENCOUNTER 2023-02-10 07:34 | Outpatient (REF) | payer OTHER, SELFPAY ==
[2023-02-10 07:53] LABS: MANUAL DIFF FLAG NO
[2023-02-10 09:34] LABS: Basophils Percent Auto 0.5 % (0-2); Eosinophils Absolute Auto 0.4 X10*3/uL (0.0-0.4); Eosinophils Percent Auto 6.2 % (0-4); Hematocrit 45.1 % (37.0-47.0); Hemoglobin 15.1 g/dl (12.0-16.0); Imm Gran Abs Auto 0.02 X10*3/uL (0.00-0.03); Imm Gran Pct Auto 0.3 % (0.0-0.4); Lymphocytes Percent Auto 30.5 % (20-40); Mean Corpuscular HGB Conc 33.5 g/dl (31.0-35.0); Mean Corpuscular Hemoglobin 32.1 pg (27.0-33.0); Mean Corpuscular Volume 95.8 fL (80.0-98.0); Mean Platelet Volume 10.6 fL (9.4-12.3); Monocytes Absolute Auto 0.5 X10*3/uL (0.1-1.2); Monocytes Percent Auto 7.1 % (2-11); Neutrophils Absolute Auto 3.6 x10*3/uL (2.0-8.3); Neutrophils Percent Auto 55.4 % (45-73); Platelet Count 157 X10*3/uL (160-400); Red Blood Count 4.71 X10*6/uL (4.20-5.50); Red Cell Distribution Width 12.8 % (11.0-16.0); White Blood Count 6.6 X10*3/uL (4.8-10.8)
[2023-02-10 09:43] LABS: Estimated Average Glucose 100 mg/dL; Hemoglobin A1c % 5.1 % (<6.0)
[2023-02-10 10:08] LABS: Alanine Aminotransferase 21 U/L (0-31); Albumin Level 4.5 g/dL (3.5-5.0); Alkaline Phosphatase 120 U/L (39-117); Anion Gap 12 (12-20); Aspartate Amino Transferase 26 U/L (5-31); Bilirubin Total 0.5 mg/dL (0.0-1.0); Blood Urea Nitrogen 12 mg/dL (9-16); Calcium 10.1 mg/dL (8.4-10.2); Carbon Dioxide 30 mmol/L (22-29); Chloride 106 mmol/L (96-108); Cholesterol 172 mg/dL (<200); Estimated Glomerular Filt Rate > 60; Glucose Fasting 91 mg/dL (60-99); HDL Cholesterol 60 mg/dL (>40); LDL Cholesterol Calculated 98 mg/dL (<100); Potassium 4.2 mmol/L (3.3-5.1); Sodium 144 mmol/L (135-145); Total Protein 7.5 g/dL (6.5-8.0); Triglycerides 71 mg/dL (<150)
== END 2023-02-10 07:35 | disposition home or self-care (01) ==
LOC: HO.LAB 07:34
PROVIDERS: PCP Internal Medicine; Visit Provider Internal Medicine
DX: E78.9 Disorder of lipoprotein metabolism, unspecified (principal); D69.6 Thrombocytopenia, unspecified; R73.03 Prediabetes; M62.830 Muscle spasm of back; Z91.09 Other allergy status, other than to drugs and biological substances
CPT/HCPCS: 36415; 80053; 80061; 83036; 85025

== ENCOUNTER 2023-06-27 09:40 | Outpatient (AMB) | payer OTHER, SELFPAY ==
[2023-06-27 09:44] VITALS: BP 110/66; PULSE 69; O2SAT 97; BMI 24.7
--- NOTE | 2023-06-27 09:44 | MHC.PC.OV ---
Vital Signs 06/27/23 09:44 Height 5 ft 3 in Weight 139 lb 6 oz BMI 24.7 BP 110/66 Blood Pressure Location Lt brachial Position Sitting Pulse 69 Pulse Source Pulse Oximeter Pulse Oximetry (%) 97 Oxygen Delivery Method Room Air Intake Visit Reasons: PE Allergies penicillin V Allergy (Severe, Verified 06/27/23 09:44) anaphylaxis Medication List - Last Reconciled 06/27/23 by Filomena Roberts MD atorvastatin 10 mg PO DAILY 90 days cholecalciferol (vitamin D3) 25 mcg PO DAILY ibuprofen 600 mg PO Q6H PRN loratadine 10 mg PO DAILY multivitamin (Daily Multi-Vitamin tablet) 1 tab PO DAILY valacyclovir 500 mg PO DAILY 90 days Tobacco use date assessed: 06/27/23 Dental Screening Dental Screen Date: 06/27/23 Did you have a dental visit in the last 12 months?: Yes Did you have a dental problem in the last 6 months where you did not have access to dental care?: No Was dental information given to patient?: Patient has dentist HPI PE HPI Details Patient is a 57-year-old female came in today for physical exam Patient had bone density done around age 54 and that showed osteopenia Order placed for repeat bone density with mammogram in December Meanwhile I would recommend weight bearing exercises calcium rich foods Patient is also complaining of mild paresthesia mid thoracic area which is there for years However I see any imaging over thoracic spine, order placed Vital signs are stable She is due for labs in July we are doing labs every 6 months. Mammogram was December of last year Patient have OBGYN for Pap smear Colonoscopy will be at 2025, last colonoscopy was 7 years ago at [facility] by Dr. Bañuelos Patient is on atorvastatin 10 mg for lipid control Allergies are stable she is on long-acting antihistamine. [facility] Medical History COVID-19 vaccine series completed Hyperlipidemia Right groin mass Surgical History H/O colonoscopy History of sinus surgery History of tonsillectomy History of umbilical hernia Family History Father Medical history non-contributory Mother Throat cancer Brother No problems noted. Sister Colitis Sister No problems noted. Maternal Grandmother Breast cancer Maternal Grandfather No problems noted. Paternal Grandmother No problems noted. Paternal Grandfather No problems noted. Maternal Aunt No problems noted. Son No problems noted. Son No problems noted. Other Substance use disorder Social History Housing: House Patient Tobacco Use Status: Never used Tobacco e-Cigarette/Vaping Use: Never Used Second Hand Smoke Exposure: Yes service: No Current occupational status: employed Cognitive needs: No Hearing needs: No Vision needs: Yes Questionnaire PHQ-9 Over the last 2 weeks, how often have you been bothered by any of the following problems? 1. Little interest or pleasure in doing things: not at all 2. Feeling down, depressed, or hopeless: not at all 3. Trouble falling or staying asleep, or sleeping too much: not at all 4. Feeling tired or having little energy: not at all 5. Poor appetite or overeating: not at all 6. Feeling bad about yourself - or that you are a failure or have let yourself or your family down: not at all 7. Trouble concentrating on things, such as reading the newspaper or watching television: not at all 8. Moving or speaking so slowly that other people could have noticed. Or the opposite - being so fidgety or restless that you have been moving around a lot more than usual: not at all 9. Thoughts that you would be better off or of hurting yourself in some way: not at all Total score: 0 Depression Screening Interpretation: Negative Depression Screening Done: Yes 25000 - PHQ-9 Billing: Yes Source: Developed by Drs. Suleman Huber, Ariana Arreguin, Luis Armando Mcmahan and colleagues, with an educational kishore from [employer]. Thrive Questionnaire Date Thrive assessed: 06/27/23 I am a: Patient What is your living situation today?: I have a steady place to live Within the past 12 months, did the food you bought not last and you didn't have the money to get more?: Never true Within the past 12 months, did you worry whether your food would run out before you got money to buy more?: Never true Do you have trouble paying for medicines?: No Do you have trouble getting transportation to medical appointments?: No Do you have trouble paying your heating and electricity bill?: No Do you have trouble taking care of your child, family member or friend?: No Do you have trouble with day-to-day activities such as bathing, preparing meals, shopping, managing finances, etc.?: No Are you currently unemployed and looking for a job?: No Are you interested in more education?: No Please select the resources that you would like help with: None Currently or been in a relationship where the following occur: no concerns reported THRIVE Score: 0 AUDIT C Alcohol Use Questionnaire (AUDIT-C) 1. How often do you have a drink containing alcohol?: Monthly or less 2. How many drinks containing alcohol do you have on a typical day when you are drinking?: 1 or 2 3. How often do you have six or more drinks on one occasion?: Never Total Score: 1 Score Reviewed/Action Taken: Yes JASS-7 AMB Questionnaire JASS-7 Date JASS - 7 assessed: 06/27/23 Feeling nervous, anxious, or on edge: 0 = Not at all Not being able to stop or control worryin = Not at all Worrying too much about different things: 0 = Not at all Trouble relaxin = Not at all Being so restless that it is hard to sit still: 0 = Not at all Becoming easily annoyed or irritable: 0 = Not at all Feeling afraid as if something awful might happen: 0 = Not at all Total JASS-7 score (0-4 normal; 5-9 mild; 10-14 moderate; 15-21 severe): 0 Source: Developed by Drs. Suleman Huber, Ariana Arreguin, Luis Armando Mcmahan and colleagues, with an educational kishore from [employer]. JASS-7 Assessment Billing JASS-7 Assessment Tool: JASS-7 Assessment 18712 Review of Systems Const Denies chills, Denies fever(s) and Denies headache(s) Eyes Denies blurry vision ENT Denies headache(s), Denies nasal discharge, Denies nasal obstruction, Denies odynophagia and Denies sinus pain Card Denies chest pain at rest and Denies chest pain with activity Resp Denies cough and Denies hemoptysis GI Denies diarrhea, Denies odynophagia, Denies vomiting and Denies hematemesis Reports as per HPI Musc Denies abnormal gait Skin/Breast Reports as per HPI Neuro Denies Neuro-related abnormal movements, Denies Abnormal speech present, Denies abnormal gait, Denies headache(s) and Denies Sensory deficit (Neuro) Psych Denies mood swings and Denies paranoia Endo Reports as per HPI Dat/Lymph Reports as per HPI Aller/Immun Reports as per HPI Physical exam (Primary Care) Vital Signs: Last Vital Signs Pulse 69 06/27/23 09:44 BP 110/66 06/27/23 09:44 Pulse Ox 97 06/27/23 09:44 Oxygen Delivery Method Room Air 06/27/23 09:44 BMI result Body Mass Index 24.7 Tobacco/Smoking Status: Tobacco use Status Tobacco use date assessed 06/27/23 06/27/23 09:48 Patient Tobacco Use Status Never used Tobacco 06/27/23 09:48 e-Cigarette/Vaping Use Never Used 06/27/23 09:48 PHQ-9: PHQ-9 Score PHQ-9: Total score 0 06/27/23 09:51 Depression Screening Interpretation: Negative Thrive Assessment: Date of Thrive Assessment Date Thrive assessed 06/27/23 06/27/23 09:51 Currently or been in a relationship where the following occur: no concerns reported Const General: cooperative, comfortable and no acute distress Orientation/consciousness: patient oriented x3 HENMT Head: Yes normocephalic and Yes atraumatic Eyes General: appearance normal, both eyes and all related structures Pupils: Equal, round and reactive pupils present EOM: EOMs intact bilaterally Neck Neck: Yes supple and No lymphadenopathy Thyroid: Thyroid normal Lymphatic: no lymphadenopathy noted Resp Effort & Inspection: normal respiratory effort and able to speak in complete sentences Auscultation: clear to auscultation bilaterally Cardio Heart sounds: S1 normal heart sound present and S2 normal heart sound present GI Palpation (GI): Soft to palpation and nontender Auscultation: normal bowel sounds General: Yes no CVA tenderness Back/Spine/Pelvis Back: no CVA tenderness Skin General skin exam: elasticity normal and turgor normal Neuro General: patient oriented x3 and gait normal Cranial nerves: Yes Equal, round and reactive pupils present Speech: No Abnormal speech present Sensory Exam: No Sensory deficit (Neuro) Coordination: tandem gait normal and Romberg test negative Extrem General: Yes normal exam except as noted and No edema Assessment and Plan Assessment & Plan (1) Encounter for general adult medical examination with abnormal findings: Code(s): Z00.01 - Encounter for general adult medical examination with abnormal findings (2) Thrombocytopenia: Code(s): D69.6 - Thrombocytopenia, unspecified (3) Environmental allergies: Code(s): Z91.09 - Other allergy status, other than to drugs and biological substances (4) Pre-diabetes: Code(s): R73.03 - Prediabetes (5) LFT elevation: Code(s): R79.89 - Other specified abnormal findings of blood chemistry (6) Lipid disorder: Code(s): E78.9 - Disorder of lipoprotein metabolism, unspecified (7) Osteoarthritis thoracic spine: Code(s): M47.814 - Spondylosis without myelopathy or radiculopathy, thoracic region Qualifiers: Spinal osteoarthritis complication: without myelopathy or radiculopathy Qualified Code(s): M47.814 - Spondylosis without myelopathy or radiculopathy, thoracic region Plan Patient is a 57-year-old female came in today for physical exam Patient had bone density done around age 54 and that showed osteopenia Order placed for repeat bone density with mammogram in December Meanwhile I would recommend weight bearing exercises calcium rich foods Patient is also complaining of mild paresthesia mid thoracic area which is there for years However I see any imaging over thoracic spine, order placed Vital signs are stable She is due for labs in July we are doing labs every 6 months. Mammogram was December of last year Patient have OBGYN for Pap smear Colonoscopy will be at 2025, last colonoscopy was 7 years ago at [facility] by Dr. Bañuelos Patient is on atorvastatin 10 mg for lipid control Allergies are stable she is on long-acting antihistamine. Orders: Orders XR thoracic spine 2V Today M47.814 - Spondylosis without myelopathy or radiculopathy, thoracic region Hemoglobin A1c 6 Months Complete Blood Count Auto Diff Today D69.6 - Thrombocytopenia, unspecified, E78.9 - Disorder of lipoprotein metabolism, unspecified, R73.03 - Prediabetes, R79.89 - Other specified abnormal findings of blood chemistry, Z00.01 - Encounter for general adult medical examination with abnormal findings, Z91.09 - Other allergy status, other than to drugs and biological substances Comprehensive Geronimo. Panel Fast Today D69.6 - Thrombocytopenia, unspecified, E78.9 - Disorder of lipoprotein metabolism, unspecified, R73.03 - Prediabetes, R79.89 - Other specified abnormal findings of blood chemistry, Z00.01 - Encounter for general adult medical examination with abnormal findings, Z91.09 - Other allergy status, other than to drugs and biological substances Lipid Panel Today D69.6 - Thrombocytopenia, unspecified, E78.9 - Disorder of lipoprotein metabolism, unspecified, R73.03 - Prediabetes, R79.89 - Other specified abnormal findings of blood chemistry, Z00.01 - Encounter for general adult medical examination with abnormal findings, Z91.09 - Other allergy status, other than to drugs and biological substances Complete Blood Count Auto Diff 6 Months Comprehensive Geronimo. Panel Fast 6 Months Vitamin D 25-OH (D2 and D3) 6 Months Coding Level of Care Code Est Pt Prev Care 40-64y(74956) Diagnoses Encounter for general adult medical examination with abnormal findings Z00.01 Thrombocytopenia D69.6 Environmental allergies Z91.09 Pre-diabetes R73.03 LFT elevation R79.89 Lipid disorder E78.9 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 Spinal osteoarthritis complication: without myelopathy or radiculopathy Additional Codes JASS-7 Assessment Billing - JASS-7 Assessment Tool: JASS-7 Assessment 60324 ([id number])
== END 2023-06-27 10:13 | disposition home or self-care (01) ==
PROVIDERS: Visit Provider Internal Medicine
DX: Z00.00 Encounter for general adult medical examination without abnormal findings (principal); D69.6 Thrombocytopenia, unspecified; Z91.09 Other allergy status, other than to drugs and biological substances; R73.03 Prediabetes; R79.89 Other specified abnormal findings of blood chemistry; E78.9 Disorder of lipoprotein metabolism, unspecified; M47.814 Spondylosis without myelopathy or radiculopathy, thoracic region
CPT/HCPCS: 99396

== ENCOUNTER 2023-07-03 07:48 | Outpatient (REF) | payer OTHER, SELFPAY ==
[2023-07-03 08:06] LABS: MANUAL DIFF FLAG NO
[2023-07-03 08:15] LABS: Basophils Percent Auto 0.3 % (0-2); Eosinophils Absolute Auto 0.3 X10*3/uL (0.0-0.4); Eosinophils Percent Auto 5.5 % (0-4); Hematocrit 44.2 % (37.0-47.0); Hemoglobin 14.9 g/dl (12.0-16.0); Imm Gran Abs Auto 0.01 X10*3/uL (0.00-0.03); Imm Gran Pct Auto 0.2 % (0.0-0.4); Lymphocytes Absolute Auto 1.6 X10*3/uL (1.2-4.9); Lymphocytes Percent Auto 27.3 % (20-40); Mean Corpuscular HGB Conc 33.7 g/dl (31.0-35.0); Mean Corpuscular Hemoglobin 32.3 pg (27.0-33.0); Mean Corpuscular Volume 95.9 fL (80.0-98.0); Mean Platelet Volume 9.9 fL (9.4-12.3); Monocytes Absolute Auto 0.5 X10*3/uL (0.1-1.2); Monocytes Percent Auto 8.9 % (2-11); Neutrophils Absolute Auto 3.5 x10*3/uL (2.0-8.3); Neutrophils Percent Auto 57.8 % (45-73); Platelet Count 146 X10*3/uL (160-400); Red Blood Count 4.61 X10*6/uL (4.20-5.50); Red Cell Distribution Width 12.7 % (11.0-16.0)
[2023-07-03 08:23] LABS: Alanine Aminotransferase 30 U/L (0-31); Albumin Level 4.4 g/dL (3.5-5.0); Alkaline Phosphatase 125 U/L (39-117); Anion Gap 13 (12-20); Aspartate Amino Transferase 22 U/L (5-31); Bilirubin Total 0.3 mg/dL (0.0-1.0); Blood Urea Nitrogen 15 mg/dL (9-16); Calcium 10.2 mg/dL (8.4-10.2); Carbon Dioxide 27 mmol/L (22-29); Chloride 108 mmol/L (96-108); Cholesterol 160 mg/dL (<200); Estimated Glomerular Filt Rate > 60; Glucose Fasting 100 mg/dL (60-99); HDL Cholesterol 54 mg/dL (>40); LDL Cholesterol Calculated 93 mg/dL (<100); Potassium 4.3 mmol/L (3.3-5.1); Sodium 144 mmol/L (135-145); Total Protein 7.2 g/dL (6.5-8.0); Triglycerides 69 mg/dL (<150)
== END 2023-07-03 07:49 | disposition home or self-care (01) ==
LOC: HO.LAB 07:48
PROVIDERS: PCP Internal Medicine; Visit Provider Internal Medicine
DX: Z00.01 Encounter for general adult medical examination with abnormal findings (principal); D69.6 Thrombocytopenia, unspecified; Z91.09 Other allergy status, other than to drugs and biological substances; R73.03 Prediabetes; R79.89 Other specified abnormal findings of blood chemistry; E78.9 Disorder of lipoprotein metabolism, unspecified
CPT/HCPCS: 36415; 80053; 80061; 85025

== ENCOUNTER 2023-07-10 07:28 | Outpatient (REF) | payer OTHER, SELFPAY ==
--- NOTE | ~2023-07-10 | XR_ITS ---
EXAMINATION: XR THORACOLUMBAR SPINE CLINICAL INFORMATION: Spondylosis without myelopathy or radiculopathy, thoracic region No trauma COMPARISON: None available. TECHNIQUE: AP and lateral views of the thoracic spine. FINDINGS: The height of the thoracic vertebral bodies is well-maintained. Alignment is within normal limits. Mild round back posture is noted. There is multilevel degenerative disc disease with marginal osteophyte formation. The paraspinal soft tissues are normal. XR/XR thoracic spine 2V IMPRESSION: 1. Multilevel degenerative disc disease. 2. No acute bony abnormality.
== END 2023-07-10 07:29 | disposition home or self-care (01) ==
LOC: HO.XRAY 07:28
PROVIDERS: PCP Internal Medicine; Visit Provider Internal Medicine
DX: M47.814 Spondylosis without myelopathy or radiculopathy, thoracic region (principal)
CPT/HCPCS: 72070

== ENCOUNTER 2024-01-01 07:36 | Outpatient (REF) | payer OTHER, SELFPAY ==
[2024-01-01 07:58] LABS: MANUAL DIFF FLAG NO
[2024-01-01 07:59] LABS: Basophils Percent Auto 0.6 % (0-2); Eosinophils Absolute Auto 0.2 X10*3/uL (0.0-0.4); Eosinophils Percent Auto 4.3 % (0-4); Hematocrit 43.5 % (37.0-47.0); Hemoglobin 14.9 g/dl (12.0-16.0); Imm Gran Abs Auto 0.01 X10*3/uL (0.00-0.03); Imm Gran Pct Auto 0.2 % (0.0-0.4); Lymphocytes Absolute Auto 1.6 X10*3/uL (1.2-4.9); Lymphocytes Percent Auto 31.2 % (20-40); Mean Corpuscular HGB Conc 34.3 g/dl (31.0-35.0); Mean Corpuscular Hemoglobin 32.5 pg (27.0-33.0); Mean Corpuscular Volume 94.8 fL (80.0-98.0); Mean Platelet Volume 9.6 fL (9.4-12.3); Monocytes Absolute Auto 0.4 X10*3/uL (0.1-1.2); Monocytes Percent Auto 7.5 % (2-11); Neutrophils Absolute Auto 2.9 x10*3/uL (2.0-8.3); Neutrophils Percent Auto 56.2 % (45-73); Platelet Count 153 X10*3/uL (160-400); Red Blood Count 4.59 X10*6/uL (4.20-5.50); Red Cell Distribution Width 12.8 % (11.0-16.0); White Blood Count 5.1 X10*3/uL (4.8-10.8)
[2024-01-01 08:05] LABS: Estimated Average Glucose 108 mg/dL; Hemoglobin A1C 132.7981 umol/L; Hemoglobin A1c % 5.4 % (<6.0); Total Hemoglobin (HGBA1C) 3752.9793 umol/L
[2024-01-01 08:15] LABS: Alanine Aminotransferase 26 U/L (0-31); Albumin Level 4.2 g/dL (3.5-5.0); Alkaline Phosphatase 104 U/L (39-117); Anion Gap 12 (12-20); Aspartate Amino Transferase 23 U/L (5-31); Bilirubin Total 0.5 mg/dL (0.0-1.0); Blood Urea Nitrogen 16 mg/dL (9-16); Calcium 9.4 mg/dL (8.4-10.2); Carbon Dioxide 27 mmol/L (22-29); Chloride 107 mmol/L (96-108); Estimated Glomerular Filt Rate > 60; Glucose Fasting 100 mg/dL (60-99); Potassium 3.7 mmol/L (3.3-5.1); Sodium 142 mmol/L (135-145); Total Protein 6.9 g/dL (6.5-8.0)
[2024-01-05 16:48] LABS: Vitamin D 25-OH, D2 <4 ng/mL; Vitamin D 25-OH, D3 24 ng/mL; Vitamin D 25-OH, Total 24 ng/mL (30-100)
== END 2024-01-01 07:37 | disposition home or self-care (01) ==
LOC: HO.LAB 07:36
PROVIDERS: PCP Internal Medicine; Visit Provider Internal Medicine
DX: Z00.01 Encounter for general adult medical examination with abnormal findings (principal); D69.6 Thrombocytopenia, unspecified; E78.9 Disorder of lipoprotein metabolism, unspecified; R73.03 Prediabetes; R79.89 Other specified abnormal findings of blood chemistry
CPT/HCPCS: 36415; 80053; 82306; 83036; 85025

== ENCOUNTER 2024-01-08 07:45 | Outpatient (REF) | payer OTHER, SELFPAY ==
--- NOTE | ~2024-01-08 | MM_ITS ---
EXAMINATION: MM SCREENING DIGITAL BREAST TOMOSYNTHESIS, BILATERAL CLINICAL INFORMATION: Screening. Asymptomatic. COMPARISON: Mammography: Comparison is made with available priors TECHNIQUE: Digital breast mammography with tomosynthesis is performed in both the craniocaudal and mediolateral oblique views along with computer-aided detection (CAD). FINDINGS: The breasts are heterogeneously dense, which may obscure small masses (ACR BI-RADS breast composition Category c). There are no significant masses, abnormal calcifications, or other abnormalities. MM/MM tomosynthesis screening BI IMPRESSION: No mammographic evidence of malignancy. ASSESSMENT: BI-RADS BI-RADS 1 - Negative RECOMMENDATION: Routine annual mammography screening. 1 year F/U This examination should not preclude the clinical evaluation of a suspicious palpable abnormality. This patient's information was entered into a reminder system with a target due date for their next mammogram. Electronically signed by: Yari Krishnamurthy DO 01/16/2024 09:14 AM MARY
== END 2024-01-08 07:46 | disposition home or self-care (01) ==
LOC: HO.MAMMO 07:45
PROVIDERS: PCP Internal Medicine; Visit Provider Internal Medicine
DX: Z12.31 Encounter for screening mammogram for malignant neoplasm of breast (principal)
CPT/HCPCS: 77063; 77067

== ENCOUNTER → 2024-01-08 07:45 | Outpatient (BNV) | payer OTHER, SELFPAY | PROVIDERS: PCP Internal Medicine; Visit Provider Internal Medicine | DX: Z12.31 Encounter for screening mammogram for malignant neoplasm of breast (principal) | CPT/HCPCS: 77063; 77067 ==

== ENCOUNTER 2024-07-13 15:28 | Outpatient (AMB) | payer OTHER, SELFPAY ==
[2024-07-13 15:30] VITALS: BP 116/68; PULSE 91; O2SAT 95; BMI 23.3
--- NOTE | 2024-07-13 15:30 | A.OFFPC_ITS ---
Vital Signs 07/13/24 15:30 Height 5 ft 3 in Weight 131 lb 8 oz BMI 23.3 BP 116/68 Blood Pressure Location Rt brachial Position Sitting Pulse 91 Pulse Source Pulse Oximeter Pulse Oximetry (%) 95 Oxygen Delivery Method Room Air Intake Visit Reasons: PE Allergies penicillin V Allergy (Severe, Verified 07/13/24 15:30) anaphylaxis Medication List - Last Reconciled 07/13/24 by Filomena Roberts MD atorvastatin 10 mg PO DAILY 90 days cholecalciferol (vitamin D3) 25 mcg PO DAILY ibuprofen 600 mg PO Q6H PRN loratadine 10 mg PO DAILY multivitamin (Daily Multi-Vitamin tablet) 1 tab PO DAILY valacyclovir 500 mg PO DAILY 90 days Tobacco use date assessed: 07/13/24 Dental Screening Dental Screen Date: 07/13/24 Did you have a dental visit in the last 12 months?: Yes Did you have a dental problem in the last 6 months where you did not have access to dental care?: No Was dental information given to patient?: Patient has dentist HPI PE HPI Details PE apt - The patient is a 58-year-old female pr esenting with chronic osteoarthritis management and preventative health and screening update. - The patient reports experiencing pain in the knee, especially with bending movements, suspected to be related to osteoarthritis. - The patient has a history of osteoarth ritis in the back. - The patient discusses a significant fa milial history of Smith syndrome, with a niece and two first cousins testing positive, though she has not been tested herself. - She notes a history of skin cancer and attends dermatological check-ups annually. - Vitamin D deficiency has been identifi ed previously, with a level last recorded at 24. - The patient reports a history of herpe s labialis, which occurs sporadically. Health Maintenance - The patient has received a mammogram i n December. - Regular dermatological visits are cond ucted annually due to a history of skin cancer. - The patient is taking Vitamin D supple ments for deficiency. - Dental visit completed two months ago. - Comprehensive eye check performed the day before the visit. - Tetanus vaccination up-to-date as , with current immunity status. Medications - Vitamin D for deficiency management - Atorvastatin for hyperlipidemia manage ment - Valtrex for episodic management of her pes labialis Diagnostic results - Mammogram completed in December, detai ls not specified in the conversation - Eye examination conducted recently, re sults not specified in conversation Patient Instructions - Continue taking Vitamin D supplements daily. - Undergo labs and X-ray left Knee, next door after the blood test. - Fasting is required for upcoming labs. and then in 6 M - Consideration for genetic testing for Smith syndrome, discussions, and forms from [facility] genetics. - Return for follow-up and physical exam in one year. - Maintain current medication regimen in cluding atorvastatin and Valtrex as needed. Review of Systems - General: No fever no chills - Neurological: No headaches no dizzin ess - Ear nose throat: No sore throat no hearing difficulty no ear pain - Cardiovascular: No syncope, no chest pain, no palpitations - Gastrointestinal: No nausea vomiting or diarrhea - Endocrine: No polyuria polydipsia no heat intolerance - Genitourinary: No dysuria - Skin: No new complaints Physical Exam General: Cooperative, healthy appearing, comfortable, no acute distress Orientation: Patient oriented x3 Limitations: none Head: Normal to inspection Ears: Within normal limit visually Nose: Normal external nose present Face and sinus: Normal facial exam Eyes: Appearance normal, extraocular movement intact pupils reactive Neck: Normal visual inspection and supple Respiratory: Normal respiratory effort and able to speak in complete sentences. Clear to auscultation, no stridor Cardiovascular: S1 and S2 RRR Back : no pain with percussion GI: Normal to inspection. Soft to palpation and nontender Skin: Turgor normal, no acute findings, no moles, no rashes Neuro: Patient oriented x3, motor sensory intact, balance intact, tandem pass Extremities: Normal to inspection, no swelling on the ankles, knee clicking felt with flexion bilateral , shoulders with full ROM PFSH Medical History COVID-19 vaccine series completed Hyperlipidemia Right groin mass Surgical History H/O colonoscopy History of sinus surgery History of tonsillectomy History of umbilical hernia Family History Father Medical history non-contributory Mother Throat cancer Brother No problems noted. Sister Colitis Sister No problems noted. Maternal Grandmother Breast cancer Maternal Grandfather No problems noted. Paternal Grandmother No problems noted. Paternal Grandfather No problems noted. Maternal Aunt No problems noted. Son No problems noted. Son No problems noted. Other Substance use disorder Social History Housing: House Patient Tobacco Use Status: Never used Tobacco e-Cigarette/Vaping Use: Never Used Second Hand Smoke Exposure: Yes service: No Current occupational status: employed Cognitive needs: No Hearing needs: No Vision needs: Yes Questionnaire PHQ-9 Over the last 2 weeks, how often have you been bothered by any of the following problems? 1. Little interest or pleasure in doing things: not at all 2. Feeling down, depressed, or hopeless: not at all 3. Trouble falling or staying asleep, or sleeping too much: not at all 4. Feeling tired or having little energy: not at all 5. Poor appetite or overeating: not at all 6. Feeling bad about yourself - or that you are a failure or have let yourself or your family down: not at all 7. Trouble concentrating on things, such as reading the newspaper or watching television: not at all 8. Moving or speaking so slowly that other people could have noticed. Or the opposite - being so fidgety or restless that you have been moving around a lot more than usual: not at all 9. Thoughts that you would be better off or of hurting yourself in some way: not at all Total score: 0 Depression Screening Interpretation: Negative Depression Screening Done: Yes 51518 - PHQ-9 Billing: Yes Source: Developed by Drs. Suleman Huber, Ariana Arreguin, Luis Armando Mcmahan and colleagues, with an educational kishore from [employer]. Thrive Questionnaire Date Thrive assessed: 07/13/24 I am a: Patient What is your living situation today?: I have a steady place to live Within the past 12 months, did the food you bought not last and you didn't have the money to get more?: Never true Within the past 12 months, did you worry whether your food would run out before you got money to buy more?: Never true Do you have trouble paying for medicines?: No Do you have trouble getting transportation to medical appointments?: No Do you have trouble paying your heating and electricity bill?: No Do you have trouble taking care of your child, family member or friend?: No Do you have trouble with day-to-day activities such as bathing, preparing meals, shopping, managing finances, etc.?: No Are you currently unemployed and looking for a job?: No Are you interested in more education?: No Please select the resources that you would like help with: None Currently or been in a relationship where the following occur: No concerns reported THRIVE Score: 0 AUDIT C Alcohol Use Questionnaire (AUDIT-C) 1. How often do you have a drink containing alcohol?: Monthly or less 2. How many drinks containing alcohol do you have on a typical day when you are drinking?: 1 or 2 3. How often do you have six or more drinks on one occasion?: Never Total Score: 1 Score Reviewed/Action Taken: Yes JASS-7 AMB Questionnaire JASS-7 Date JASS - 7 assessed: 07/13/24 Feeling nervous, anxious, or on edge: 0 = Not at all Not being able to stop or control worryin = Not at all Worrying too much about different things: 0 = Not at all Trouble relaxin = Not at all Being so restless that it is hard to sit still: 0 = Not at all Becoming easily annoyed or irritable: 0 = Not at all Feeling afraid as if something awful might happen: 0 = Not at all Total JASS-7 score (0-4 normal; 5-9 mild; 10-14 moderate; 15-21 severe): 0 Source: Developed by Drs. Suleman Huber, Ariana Arreguin, Luis Armando Mcmahan and colleagues, with an educational kishore from [employer]. JASS-7 Assessment Billing JASS-7 Assessment Tool: JASS-7 Assessment 93852 Physical exam (Primary Care) Vital Signs: Last Vital Signs Pulse 91 07/13/24 15:30 BP 116/68 07/13/24 15:30 Pulse Ox 95 07/13/24 15:30 Oxygen Delivery Method Room Air 07/13/24 15:30 BMI result Body Mass Index 23.3 Tobacco/Smoking Status: Tobacco use Status Tobacco use date assessed 07/13/24 07/13/24 15:31 Patient Tobacco Use Status Never used Tobacco 07/13/24 15:31 e-Cigarette/Vaping Use Never Used 07/13/24 15:31 PHQ-9: PHQ-9 Score PHQ-9: Total score 0 07/13/24 15:31 Depression Screening Interpretation: Negative Thrive Assessment: Date of Thrive Assessment Date Thrive assessed 07/13/24 07/13/24 15:31 Currently or been in a relationship where the following occur: No concerns reported Coding Level of Care Code Est Pt Level 3 (36710) Est Pt Prev Care 40-64y(37127) Diagnoses Encounter for general adult medical examination with abnormal findings Z00.01 Chronic pain of left knee M25.562; G89.29 Chronicity: chronic Laterality: left Family history of Smith syndrome Z80.0 Lipid disorder E78.9 Pre-diabetes R73.03 Environmental allergies Z91.09 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 Spinal osteoarthritis complication: without myelopathy or radiculopathy Additional Codes JASS-7 Assessment Billing - JASS-7 Assessment Tool: JASS-7 Assessment 19251 ([id number]) PHQ-9 - 89556 - PHQ-9 Billing: Yes ([id number]) Assessment & Plan Assessment & Plan (1) Encounter for general adult medical examination with abnormal findings: Code(s): Z00.01 - Encounter for general adult medical examination with abnormal findings Category: Medical (2) Knee pain: Code(s): M25.569 - Pain in unspecified knee Category: Medical Qualifiers: Chronicity: chronic Laterality: left Qualified Code(s): M25.562 - Pain in left knee; G89.29 - Other chronic pain (3) Family history of Smith syndrome: Code(s): Z80.0 - Family history of malignant neoplasm of digestive organs Category: Medical (4) Lipid disorder: Code(s): E78.9 - Disorder of lipoprotein metabolism, unspecified Category: Medical (5) Pre-diabetes: Code(s): R73.03 - Prediabetes Category: Medical (6) Environmental allergies: Code(s): Z91.09 - Other allergy status, other than to drugs and biological substances Category: Medical (7) Osteoarthritis thoracic spine: Code(s): M47.814 - Spondylosis without myelopathy or radiculopathy, thoracic region Category: Medical Qualifiers: Spinal osteoarthritis complication: without myelopathy or radiculopathy Qualified Code(s): M47.814 - Spondylosis without myelopathy or radiculopathy, thoracic region Plan PE apt - The patient is a 58-year-old female presenting with chronic osteoarthritis management and preventative health and screening update. - The patient reports experiencing pain in the knee, especially with bending movements, suspected to be related to osteoarthritis. - The patient has a history of osteoarthritis in the back. - The patient discusses a significant familial history of Smith syndrome, with a niece and two first cousins testing positive, though she has not been tested herself. - She notes a history of skin cancer and attends dermatological check-ups annually. - Vitamin D deficiency has been identified previously, with a level last recorded at 24. - The patient reports a history of herpes labialis, which occurs sporadically. Health Maintenance - The patient has received a mammogram in December. - Regular dermatological visits are conducted annually due to a history of skin cancer. - The patient is taking Vitamin D supplements for deficiency. - Dental visit completed two months ago. - Comprehensive eye check performed the day before the visit. - Tetanus vaccination up-to-date as of 2016, with current immunity status. Medications - Vitamin D for deficiency management - Atorvastatin for hyperlipidemia management - Valtrex for episodic management of herpes labialis Diagnostic results - Mammogram completed in December, details not specified in the conversation - Eye examination conducted recently, results not specified in conversation Patient Instructions - Continue taking Vitamin D supplements daily. - Undergo labs and X-ray left Knee, next door after the blood test. - Fasting is required for upcoming labs. and then in 6 M - Consideration for genetic testing for Smith syndrome, discussions, and forms from [facility] genetics. - Return for follow-up and physical exam in one year. - Maintain current medication regimen including atorvastatin and Valtrex as needed. Orders: Orders Comprehensive [place]. Panel Fast 6 Months E78.9 - Disorder of lipoprotein metabolism, unspecified, R73.03 - Prediabetes Lipid Panel 6 Months E78.9 - Disorder of lipoprotein metabolism, unspecified, R73.03 - Prediabetes Complete Blood Count Auto Diff Today E78.9 - Disorder of lipoprotein metabolism, unspecified, M47.814 - Spondylosis without myelopathy or radiculopathy, thoracic region, R73.03 - Prediabetes, Z00.01 - Encounter for general adult medical examination with abnormal findings, Z91.09 - Other allergy status, other than to drugs and biological substances Comprehensive [place]. Panel Fast Today E78.9 - Disorder of lipoprotein metabolism, unspecified, M47.814 - Spondylosis without myelopathy or radiculopathy, thoracic region, R73.03 - Prediabetes, Z00.01 - Encounter for general adult medical examination with abnormal findings, Z91.09 - Other allergy status, other than to drugs and biological substances Lipid Panel Today E78.9 - Disorder of lipoprotein metabolism, unspecified, M47.814 - Spondylosis without myelopathy or radiculopathy, thoracic region, R73.03 - Prediabetes, Z00.01 - Encounter for general adult medical examination with abnormal findings, Z91.09 - Other allergy status, other than to drugs and biological substances XR knee LT 2V Today M25.569 - Pain in unspecified knee Complete Blood Count Auto Diff 6 Months E78.9 - Disorder of lipoprotein metabolism, unspecified, R73.03 - Prediabetes Hemoglobin A1c Today E78.9 - Disorder of lipoprotein metabolism, unspecified, M47.814 - Spondylosis without myelopathy or radiculopathy, thoracic region, R73.03 - Prediabetes, Z00.01 - Encounter for general adult medical examination with abnormal findings, Z91.09 - Other allergy status, other than to drugs and biological substances Referrals Genetics Referral Z80.0 - Family history of malignant neoplasm of digestive organs
--- OUTSIDE RECORDS SUMMARY | 2024-07-13 16:30 | XMS_ITS ---
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 Encounter Location Date Provider Diagnosis [facility] [address] [address] 12/16/2023 ROSEANNE GRIFFIN Plan Of Treatment Next Appt Details Provider Name:ROSEANNE Thacker, 01/03/2025 11:00:00 AM, [address] [place] [address], [facility] [address], [place], [address], Progress Notes * TAMY DANIELSEDOB: 4 (58 yo F)Acc No.[id number]:12/16/2023 PROGRESS NOTES Patient:?JEREMIAS DANIELS Provider:?ROSEANNE GRIFFIN MD :1965???Age:58 Y???Sex:Female D ate:12/16/2023 Address:[address] [place], [place] [id number] Pcp:TRACIE MESA Subjective: * Chief Complaints: * ???1. 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 * Medical History:? Objective: * Vitals:? Assessment: Plan: * Treatment: * Images: Billing Information: * Visit Code:? * Procedure Codes:? * Electronic signature of ROSEANNE GRIFFIN MD on 07/13/2024 at 04:30 PM EDT Sign off status: Pending * Provider:?ROSEANNE GRIFFIN MD Date:?2023 Generated for Rolando barajas/Chapo/Tanna on:?07/13/2024 04:30 PM EDT
--- OUTSIDE RECORDS SUMMARY | 2024-07-13 16:31 | XMS_ITS | Patient Health Record ---
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 Name Role Phone TRACIE MESA Primary Care Provider ROSEANNE Erazo Unavailable [phone] Allergies Allergen (clinical drug ingredient) Drug/Non Drug Allergy documented on EMR Reaction Allergy Type Onset Date Status Penicillin Unknown Drug Allergy Active Reason For Referral No Information Medications Medication SIG (Take, Route, Frequency, Duration) Notes Start Date End Date Status Atorvastatin Calcium 10 MG 1 tablet Oral ly Once a day Active Social History Tobacco Use: Social History Observation Description Date Details (start date - stop date) Never Smoker NA - NA Tobacco Use/Smoking Question Answer Notes Are you a nonsmoker Alcohol Screen (Audit-C) Question Answer Notes Did you have a drink contain ing alcohol in the past year? Yes How often did you have a dri nk containing alcohol in the past year? Monthly or less (1 point) How many drinks did you have on a typical day when you were drinking in the past year? 1 or 2 drinks (0 point) How often did you have 6 or more drinks on one occasion in the past year? Never (0 point) Points 1 Interpretation Negative Sexual History Question Answer Notes Had sex in the past 12 months (vaginal, oral, or anal)? Yes with Men only Use protection? No Have you ever had a Sexually transmitted disease ? No Tobacco use other than smoking: Question Answer Notes Are you an other tobacco user? 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) Family history of carrier of genetic disease (Z84.81) Active confirmed Problem COVID-19 (836120082) COVID-19 (U07.1) Active confirmed Vital Signs Temperature 97.3 degrees Fahrenheit 12/29/2023 Blood pressure diastolic 70 mm Hg 12/29/2023 Height 63 in 12/29/2023 Blood pressure systolic 110 mm Hg 12/29/2023 Weight 128 lbs 12/29/2023 BMI 22.67 kg/m2 12/29/2023 Encounters Encounter Location Date Provider Diagnosis [facility] [address] [place] [address] 12/29/2023 ROSEANNE GRIFFIN Encounter for gynecological examination (general) (routine) without abnormal findings Z01.419 ; Encounter for screening mammogram for malignant neoplasm of breast Z12.31 and Family history of carrier of genetic disease Z84.81 [facility] [address] [place] [address] 12/29/2023 ROSEANNE GRIFFIN Assessments Encounter Date Diagnosis (ICD Code) Assessment Notes Treatment Notes Treatment Clinical Notes Section Notes 12/29/2023 Encounter for gynecological examination (general) (routine) without abnormal findings (ICD-10 - Z01.419) During the visit, the following areas of concern were addressed: Discussed cervical cancer screening with either cytology alone every 3 years or high risk HPV co-testing every 5 years as per ASCCP guidelines. Advised continued annual pelvic exams. Patient encouraged to increase her level of exercise. SBE technique encouraged/taug ht. Patient reminded when annual mammogram is due. Patient encouraged to keep colon screening up to date. 12/29/2023 Encounter for screening mammogram for malignant neoplasm of breast (ICD-10 - Z12.31) 12/29/2023 Family history of carrier of genetic disease (ICD-10 - Z84.81) Refer for genetics testing. Encouraged to call me with any vaginal bleeding, as DAN syndrome is associated with increased risk of endometrial cancer. Plan Of Treatment Pending Test Test Name Order Date MM Digital Screening Mammogram 3D 2020 MM Digital Screening Mammogram 3D 2021 MM Digital Screening Mammogram 3D 2022 MM Digital Screening Mammogram 3D 2023 Next Appt Details Provider Name:ROSEANNE Thacker, 01/03/2025 11:00:00 AM, [facility], [address], [place], [address], Insurance Providers Payer Name Payer Address Payer Phone Subscriber Number Group Number Insured Name Patient Relationship to Insured Coverage Start Date Coverage End Date [employer] [place] [address] [address] [place] [address] [id number] JEREMIAS DANIELS Self - patient is the insured Medical (General) History Medical History History ICD Code Pure hypercholesterolemia, unspecified E 78.00 Other specified disorders of bone densit y and structure, unspecified site M85.80 Basal cell carcinoma of skin of left upp er limb, including shoulder C44.619 COVID-19 U07.1 Surgical History Surgery Date(Month/Year) Umbilical Hernia Repair 1967 Tonsillectomy 1969 Sinus 1989 [place] Teeth Extraction 1981 Inguinal Lymph Node Bx - benign 09/2020 Hospitalization History Reason Date(Month/Year) Childbirth
== END 2024-07-13 15:54 | disposition home or self-care (01) ==
LOC: HO.HMCC 15:29
PROVIDERS: PCP Internal Medicine; Visit Provider Internal Medicine
DX: Z00.01 Encounter for general adult medical examination with abnormal findings (principal); M25.562 Pain in left knee; G89.29 Other chronic pain; Z80.0 Family history of malignant neoplasm of digestive organs; E78.9 Disorder of lipoprotein metabolism, unspecified; R73.03 Prediabetes; Z91.09 Other allergy status, other than to drugs and biological substances; M47.814 Spondylosis without myelopathy or radiculopathy, thoracic region

== ENCOUNTER → 2024-07-13 15:28 | Outpatient (BNVA) | payer OTHER, SELFPAY | PROVIDERS: PCP Internal Medicine; Visit Provider Internal Medicine | DX: Z00.01 Encounter for general adult medical examination with abnormal findings (principal); I10 Essential (primary) hypertension; M25.562 Pain in left knee; G89.29 Other chronic pain; Z80.0 Family history of malignant neoplasm of digestive organs; R73.03 Prediabetes; M47.814 Spondylosis without myelopathy or radiculopathy, thoracic region; Z91.09 Other allergy status, other than to drugs and biological substances | CPT/HCPCS: 96127 ==

== ENCOUNTER 2024-07-14 07:49 | Outpatient (REF) | payer OTHER, SELFPAY ==
--- NOTE | ~2024-07-14 | XR_ITS ---
CLINICAL HISTORY: M25.569 - Pain in unspecified knee 2 view left knee Comparison: None Findings: No fractures or dislocations. Minimal tricompartmental degenerative change No joint effusion. No radiopaque foreign body. IMPRESSION: Minimal tricompartmental degenerative change. No acute process. This document has been electronically signed by: Nicola Rodriguez MD on 07/14/2024 13:35:53
[2024-07-14 08:03] LABS: MANUAL DIFF FLAG NO
[2024-07-14 08:12] LABS: Basophils Percent Auto 0.7 % (0-2); Eosinophils Absolute Auto 0.2 X10*3/uL (0.0-0.4); Eosinophils Percent Auto 3.7 % (0-4); Hematocrit 43.8 % (37.0-47.0); Hemoglobin 15.1 g/dl (12.0-16.0); Imm Gran Abs Auto 0.02 X10*3/uL (0.00-0.03); Imm Gran Pct Auto 0.4 % (0.0-0.4); Lymphocytes Absolute Auto 1.9 X10*3/uL (1.2-4.9); Lymphocytes Percent Auto 34.5 % (20-40); Mean Corpuscular HGB Conc 34.5 g/dl (31.0-35.0); Mean Corpuscular Hemoglobin 32.5 pg (27.0-33.0); Mean Corpuscular Volume 94.4 fL (80.0-98.0); Mean Platelet Volume 9.1 fL (9.4-12.3); Monocytes Absolute Auto 0.4 X10*3/uL (0.1-1.2); Monocytes Percent Auto 7.6 % (2-11); Neutrophils Absolute Auto 2.9 x10*3/uL (2.0-8.3); Neutrophils Percent Auto 53.1 % (45-73); Platelet Count 151 X10*3/uL (160-400); Red Blood Count 4.64 X10*6/uL (4.20-5.50); Red Cell Distribution Width 12.8 % (11.0-16.0); White Blood Count 5.4 X10*3/uL (4.8-10.8)
--- OUTSIDE RECORDS SUMMARY | 2024-07-14 08:16 | XMS_ITS ---
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 Encounter Location Date Provider Diagnosis [facility] [address] [address] 12/16/2023 ROSEANNE GRIFFIN Plan Of Treatment Next Appt Details Provider Name:ROSEANNE Thacker, 01/03/2025 11:00:00 AM, [address] [place] [address], [facility] [address], [place], [address], Progress Notes * TAMY DANIELSEDOB: 4 (58 yo F)Acc No.[id number]:12/16/2023 PROGRESS NOTES Patient:?JEREMIAS DANIELS Provider:?ROSEANNE GRIFFIN MD :1965???Age:58 Y???Sex:Female D ate:12/16/2023 Address:[address] [place], [place] [id number] Pcp:TRACIE MESA Subjective: * Chief Complaints: * ???1. 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 * Medical History:? Objective: * Vitals:? Assessment: Plan: * Treatment: * Images: Billing Information: * Visit Code:? * Procedure Codes:? * Electronic signature of ROSEANNE GRIFFIN MD on 07/14/2024 at 08:14 AM EDT Sign off status: Pending * Provider:?ROSEANNE GRIFFIN MD Date:?2023 Generated for Rolando barajas/Chapo/Tanna on:?07/14/2024 08:14 AM EDT
[2024-07-14 08:20] LABS: Estimated Average Glucose 105 mg/dL; Hemoglobin A1C 131.1848 umol/L; Hemoglobin A1c % 5.3 % (<6.0); Total Hemoglobin (HGBA1C) 3867.5675 umol/L
[2024-07-14 08:23] LABS: Alanine Aminotransferase 37 U/L (0-31); Albumin Level 4.4 g/dL (3.5-5.0); Alkaline Phosphatase 118 U/L (39-117); Anion Gap 11 (12-20); Aspartate Amino Transferase 27 U/L (5-31); Bilirubin Total 0.5 mg/dL (0.0-1.0); Blood Urea Nitrogen 14 mg/dL (9-16); Calcium 9.4 mg/dL (8.4-10.2); Carbon Dioxide 28 mmol/L (22-29); Chloride 107 mmol/L (96-108); Cholesterol 167 mg/dL (<200); Estimated Glomerular Filt Rate > 60; Glucose Fasting 96 mg/dL (60-99); HDL Cholesterol 59 mg/dL (>40); LDL Cholesterol Calculated 98 mg/dL (<100); Sodium 142 mmol/L (135-145); Triglycerides 52 mg/dL (<150)
== END 2024-07-14 07:50 | disposition home or self-care (01) ==
LOC: HO.XRAY 07:49
PROVIDERS: PCP Internal Medicine; Visit Provider Internal Medicine
DX: Z00.01 Encounter for general adult medical examination with abnormal findings (principal); R73.03 Prediabetes; E78.9 Disorder of lipoprotein metabolism, unspecified; M47.814 Spondylosis without myelopathy or radiculopathy, thoracic region; Z91.09 Other allergy status, other than to drugs and biological substances; M25.562 Pain in left knee
CPT/HCPCS: 36415; 73560; 80053; 80061; 83036; 85025

== ENCOUNTER → 2024-07-14 08:27 | Outpatient (BNV) | payer OTHER, SELFPAY | PROVIDERS: PCP Internal Medicine; Visit Provider Radiology Vascular & Interventional Radiology | DX: M17.12 Unilateral primary osteoarthritis, left knee (principal) | CPT/HCPCS: 73560 ==

== ENCOUNTER 2025-01-12 07:47 | Outpatient (REF) | payer OTHER, SELFPAY ==
--- OUTSIDE RECORDS SUMMARY | 2023-12-16 10:00 | XMS_ITS ---
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 * Medical History: Objective: * Vitals: Assessment: Plan: * Treatment: * Images: Billing Information: * Visit Code: * Procedure Codes: * Electronic signature of ROSEANNE GRIFFIN MD on 01/12/2025 at 03:20 PM EST Sign off status: Pending * Provider: Rand GRIFFIN MD Date: Generated for Rolando barajas/Chapo/Carmenitting on: 03/14/2024 03:20 PM EST
[2025-01-12 08:07] LABS: MANUAL DIFF FLAG NO
[2025-01-12 08:12] LABS: Hematocrit 44.8 % (37.0-47.0); Hemoglobin 14.9 g/dl (12.0-16.0); Imm Gran Abs Auto 0.02 X10*3/uL (0.00-0.03); Imm Gran Pct Auto 0.3 % (0.0-0.4); Lymphocytes Absolute Auto 1.8 X10*3/uL (1.2-4.9); Mean Corpuscular HGB Conc 33.3 g/dl (31.0-35.0); Mean Corpuscular Hemoglobin 32.5 pg (27.0-33.0); Mean Corpuscular Volume 97.8 fL (80.0-98.0); NRBC Abs Auto 0.000 X10*3/uL (0.0-0.012); NRBC Pct Auto 0.0 /100WBC (0.0-0.2); Platelet Count 152 X10*3/uL (160-400); Red Blood Count 4.58 X10*6/uL (4.20-5.50); White Blood Count 5.8 X10*3/uL (4.8-10.8)
[2025-01-12 08:29] LABS: Alanine Aminotransferase 32 U/L (0-31); Albumin Level 4.8 g/dL (3.5-5.0); Alkaline Phosphatase 127 U/L (39-117); Anion Gap 12 (12-20); Aspartate Amino Transferase 25 U/L (5-31); Blood Urea Nitrogen 14 mg/dL (9-16); Calcium 9.7 mg/dL (8.4-10.2); Carbon Dioxide 28 mmol/L (22-29); Chloride 106 mmol/L (96-108); Cholesterol 177 mg/dL (<200); Estimated Glomerular Filt Rate > 60; HDL Cholesterol 61 mg/dL (>40); Potassium 4.1 mmol/L (3.3-5.1); Sodium 142 mmol/L (135-145); Total Protein 7.3 g/dL (6.5-8.0); Triglycerides 59 mg/dL (<150)
--- OUTSIDE RECORDS SUMMARY | 2025-01-12 15:20 | XMS_ITS | Patient Health Record ---
Author Organization [facility] jc [place] Address [address] [facility] [place] [place] [address] Care Team Providers Care Mice Raiser Name Role Phone Armando SUE, Asma Primary Care Provider Lary Shaikh Unavailable [phone] Allergies Allergen (clinical drug ingredient) Drug/Non Drug Allergy documented on EMR Reaction Allergy Type Onset Date Status shrimp allergenic extract Shrimp (Diagnostic) vomiting, diarrhea Drug Allergy Active Penicillin Unknown Drug Allergy Active Shellfish (FN) Shellfish-derived Products vomiting, diarrhea Drug Allergy Active Reason For Referral No Information Medications Medication SIG (Take, Route, Frequency, Duration) Notes Start Date End Date Status Atorvastatin Calcium 10 MG 1 tablet Oral ly Once a day Active Vitamin D3 Active Claritin 10 MG 1 tablet Orally Once a day Active Medrol mame 4mg as directed orally a s directed; Duration: 6 days Active Immunizations Vaccine Route Administration Date Status Comme nts Influenza Unknown 12/11/2023 Administered Influenza Unknown 11/30/2024 Administered Social History Tobacco Use: Social History Observation Description Date Details (start date - stop date) Never Smoker NA - NA Tobacco use other than smoking: Question Answer Notes Are you an other tobacco user? No Tobacco Control (Standard) Question Answer Notes Tobacco use: Nonsmoker Additional Findings: Tobacco non-user Current no nsmoker AUDIT-C (Standard) Question Answer Notes Did you have a [...] (0 point) How often did you have six o r more drinks on one occasion in the past year? Never (0 point) Points 1 Interpretation Negative Problems Problem Type SNOMED Code ICD Code Onset Dates Problem Status W/U Status Risk Notes Problem Plantar fasciitis of right foot (9399276756203 9101) Plantar fasciitis of right foot (M72.2) Active confirmed Vital Signs Blood pressure diastolic 70 mm Hg 11/30/2024 Height 5ft3in in 11/30/2024 Blood pressure systolic 120 mm Hg 11/30/2024 Weight 130 lbs 11/30/2024 BMI 23.03 kg/m2 11/30/2024 Encounters Encounter Location Date Provider Diagnosis [address] [address] 09/20/2024 Lary Perica Pain in right foot M79.671 ; Plantar fasciitis of right foot M72.2 ; Calcaneal spur, right foot M77.31 ; 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 and Bursitis of right foot M77.51 [facility] [address] 11/30/2024 Lary Perica Pain in right foot M79.671 ; Plantar fasciitis of right foot M72.2 and Calcaneal spur, right foot M77.[address] [address] 09/20/2024 Lary Perica [address] [address] 09/20/2024 [facility]ary [facility]ruza [facility] [address] [address] 11/30/2024 Lary Santacruza Assessments Encounter Date Diagnosis (ICD Code) Assessment Notes Treatment Notes Treatment Clinical Notes Section Notes 09/20/2024 Pain in right foot (ICD-10 - M79.671) 09/20/2024 Plantar fasciitis of right foot (ICD-10 - M72.2) Patient Educated with: HEEL CORD STRETCHES.pdf (HEEL CORD STRETCHES.pdf) Patient Educated with: RICE THERAPY.pdf (RICE THERAPY.pdf) 11/30/2024 Pain in right foot (ICD-10 - M79.671) 11/30/2024 Plantar fasciitis of right foot (ICD-10 - M72.2) 11/30/2024 Calcaneal spur, right foot (ICD-10 - M77.31) 09/20/2024 Calcaneal spur, right foot (ICD-10 - M77.31) 09/20/2024 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) 09/20/2024 Bursitis of right foot (ICD-10 - M77.51) Plan Of Treatment Pending Test Test Name Order Date X ray : Foot, right 3V 09/20/2024 Insurance Providers Payer Name Payer Address Payer Phone Subscriber Number Group Number Insured Name Patient Relationship to Insured Coverage Start Date Coverage End Date Blue Benefits [address] [address] [place] [address] [id number] Deepali Savage Self - patient is the insured Medical (General) History Medical History History ICD Code Arthritis Back,Hip,and Knee pain Broken bones CAD (Cholesterol) skin cancer covid-19 Psoriasis/eczema Mumps Chicken pox Surgical History Surgery Date(Month/Year) umbilical hernia repair 1967 sinus surgery 1993 wisdom teeth extraction 1981
--- OUTSIDE RECORDS SUMMARY | 2025-01-12 15:20 | XMS_ITS | Patient Health Record ---
Author Organization [facility] Address [address] [place] [address] Care Team Providers Care Regulatory Affairs Internship Name Role Phone Raiza Garcia Primary Care Provider Suleman Yeager [phone] Allergies Allergen (clinical drug ingredient) Drug/Non Drug Allergy documented on EMR Reaction Allergy Type Onset Date Status Penicillin Unknown Drug Allergy Active Reason For Referral No Information Medications Medication SIG (Take, Route, Frequency, Duration) Notes Start Date End Date Status Claritin Active Social History Social History Additional Details Category Social Info Options Details Miscellaneous: Marital status: 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[employer] Section Notes: Nonsmoker; no sig alcohol Problems Problem Type SNOMED Code ICD Code Onset Dates Problem Status W/U Status Risk Notes Problem Screening for malignant neoplasm of colon (475362673) Encounter for screening for malignant neoplasm of colon (Z12.11) Active confirmed Problem Screening for malignant neoplasm of rectum (831346203) Encounter for screening for malignant neoplasm of rectum (Z12.12) Active confirmed Problem Preprocedural examination (164803490752350) Preprocedural examination (Z01.818) Active confirmed Plan Of Treatment Future Test Test Name Order Date COLONOSCOPY 07/12/2015 Insurance Providers Payer Name Payer Address Payer Phone Subscriber Number Group Number Insured Name Patient Relationship to Insured Coverage Start Date Coverage End Date [facility] [address] [place] [phone] [id number] JEREMIAS DANIELS Self - patient is the insured Medical (General) History Medical History History ICD Code Denies [place],DM,CVA,Lung disease,renal dise ase Surgical History Surgery Date(Month/Year) umbilical hernia repair 1968 tonsillectomy 1969 wisdom teeth extraction 1981 sinus surgery 1992
--- OUTSIDE RECORDS SUMMARY | 2025-01-12 15:21 | XMS_ITS | Patient Health Record ---
Author Organization [facility] Address [address] [place] [address] Care Team Providers Care Electrical Manufacturing Technician Name Role Phone TRACIE MESA Primary Care Provider ROSEANNE Erazo Unavailable [phone] Allergies Allergen (clinical drug ingredient) Drug/Non Drug Allergy documented on EMR Reaction Allergy Type Onset Date Status Penicillin Unknown Drug Allergy Active Results Component Value Reference Range Notes PDF Report Reviewed date:01/06/2025 08:37:01 AM Interpretation: Performing Lab:[facility], [address], [address], [place], Phone - [phone], [facility] Notes/Report: Clinical Information:CERV/,VAG [id number] Dates / Results....11/11/2019 NIL NEG HPV Other..............Post Menopausal No. of containers..01 ThinPrep Vial [id number] IGP No Culture 30 Plus Reviewed date:01/06/2025 08:37:21 AM Interpretation: Performing Lab:[facility], [address], [address], [place], Phone - [phone], [facility] Notes/Report: Clinical Information:CERV/,VAG [id number] Dates / Results....11/11/2019 NIL NEG HPV Other..............Post Menopausal No. of containers..01 ThinPrep Vial DIAGNOSIS: NEGATIVE FOR IN TRAEPITHELIAL LESION OR MALIGNANCY. Specimen adequacy: Satisfactory for evaluation. Endocervical and/or squamous metaplastic cells (endocervical component) are present. Clinician provided ICD10: Z01.419 Z11.51 Performed by: Lucy pierson, Glass Cleaning Machine Tender (ASCP) . . Note: The Pap smear is a screening test designed to aid in the detection of premalignant and malignant conditions of the uterine cervix. It is not a diagnostic procedure and should not be used as the sole means of detecting cervical cancer. Both false-positive and false-negative reports do occur. . Test Methodology: This liquid based ThinPrep(R) pap test was screened with the use of an image guided system. HPV Aptima Negative Negative This nucleic acid amplification test detects fourteen high-risk HPV types (16,18,31,33,35,39,45,51,52,56,5 8,59,66,68) without differentiation. HPV Genotype Reflex Criteria not met, HPV Genotype not performed. Reason For Referral No Information Medications Medication [...] Status Risk Notes Problem Genetic disorder carrier (29904509) Family history of carrier of genetic disease (Z84.81) Active confirmed Problem COVID-19 (502187311) COVID-19 (U07.1) Active confirmed Vital Signs Temperature 98.0 degrees Fahrenheit 01/03/2025 Blood pressure diastolic 64 mm Hg 01/03/2025 Height 63 in 01/03/2025 Blood pressure systolic 122 mm Hg 01/03/2025 Weight 123 lbs 01/03/2025 BMI 21.79 kg/m2 01/03/2025 Encounters Encounter Location Date Provider Diagnosis [facility] [address] [place] [address] 01/03/2025 ROSEANNE GRIFFIN Encounter for gynecological examination (general) (routine) without abnormal findings Z01.419 ; Encounter for screening mammogram for malignant neoplasm of breast Z12.31 and Encounter for screening for human papillomavirus (HPV) Z11.51 Assessments Encounter Date Diagnosis (ICD Code) Assessment Notes Treatment Notes Treatment Clinical Notes Section Notes 01/03/2025 Encounter for gynecological examination (general) (routine) without abnormal findings (ICD-10 - Z01.419) During the visit, the following areas of concern were addressed: Discussed cervical cancer screening with either cytology alone every 3 years or high risk HPV co-testing every 5 years as per ASCCP guidelines. Advised continued annual pelvic exams. Patient encouraged to increase her level of exercise. SBE technique encouraged/tau ght. Patient reminded when annual mammogram is due. Patient encouraged to keep colon screening up to date. 01/03/2025 Encounter for screening mammogram for malignant neoplasm of breast (ICD-10 - Z12.31) 01/03/2025 Encounter for screening for human papillomavirus (HPV) (ICD-10 - Z11.51) Plan Of Treatment Pending Test Test Name Order Date MM Digital Screening Mammogram 3D 2020 MM Digital Screening Mammogram 3D 2021 MM Digital Screening Mammogram 3D 2022 MM Digital Screening Mammogram 3D 2023 MM Digital Screening Mammogram 3D 2024 Next Appt Details Provider Name:ROSEANNE Thacker, 01/09/2026 11:00:00 AM, [address], [address], [place], [address], Insurance Providers Payer Name Payer Address Payer Phone Subscriber Number Group Number Insured Name Patient Relationship to Insured Coverage Start Date Coverage End Date [employer] [place] [address] [address] [place] [address] [id number] JEREMIAS DANIELS Self - patient is the insured Medical (General) History Medical History History ICD Code Pure hypercholesterolemia, unspecified E 78.00 Other specified disorders of bone densit y and structure, unspecified site M85.80 Basal cell carcinoma of skin of left upp er limb, including shoulder C44.619 COVID-19 U07.1 Surgical History Surgery Date(Month/Year) Umbilical Hernia Repair 1967 Tonsillectomy 1968 Sinus 1989 [place] Teeth Extraction 1981 Inguinal Lymph Node Bx - benign 09/2020 Hospitalization History Reason Date(Month/Year) Childbirth
== END 2025-01-12 07:48 | disposition home or self-care (01) ==
LOC: HO.LAB 07:47
PROVIDERS: PCP Internal Medicine; Visit Provider Internal Medicine
DX: R73.03 Prediabetes (principal); E78.9 Disorder of lipoprotein metabolism, unspecified
CPT/HCPCS: 36415; 80053; 80061; 85025

== ENCOUNTER 2025-01-13 07:26 | Outpatient (REF) | payer OTHER, SELFPAY ==
--- OUTSIDE RECORDS SUMMARY | 2023-12-16 10:00 | XMS_ITS ---
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 Encounter Location Date Provider Diagnosis [facility] [employer] [address] [address] 12/16/2023 ROSEANNE GRIFFIN Plan Of Treatment Next Appt Details Provider Name:ROSEANNE Thacker, 01/09/2026 11:00:00 AM, [address] [place] [address], [facility] [address], [place], [address], Progress Notes * TAMY DANIELSEDOB: 4 (59 yo F)Acc No.[id number]:12/16/2023 PROGRESS NOTES Patient: Grayson JEREMIAS SARKAR Provider: Rand GRIFFIN MD :1965 A ge:58 Y S ex:Female Date:12/16/2023 Address:[address] [place], [place] [id number] Pcp:TRACIE MESA Subjective: * Chief Complaints: * 1 . 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 * Medical History: Objective: * Vitals: Assessment: Plan: * Treatment: * Images: Billing Information: * Visit Code: * Procedure Codes: * Electronic signature of ROSEANNE GRIFFIN MD on 01/13/2025 at 07:28 AM EST Sign off status: Pending * Provider: Rand GRIFFIN MD Date: Generated for Rolando barajas/Chapo/Carmenitting on: 03/15/2024 07:28 AM EST
--- NOTE | ~2025-01-13 | MM_ITS ---
EXAMINATION: MM SCREENING DIGITAL BREAST TOMOSYNTHESIS, BILATERAL CLINICAL INFORMATION: Screening. Asymptomatic. COMPARISON: Mammography: Comparison is made with available priors TECHNIQUE: Digital breast mammography with tomosynthesis is performed in both the craniocaudal and mediolateral oblique views along with computer-aided detection (CAD). FINDINGS: The breasts are heterogeneously dense, which may obscure small masses. There are no significant masses, abnormal calcifications, or other abnormalities. MM/MM tomosynthesis screening BI IMPRESSION: No mammographic evidence of malignancy. ASSESSMENT: BI-RADS Category 1: Negative RECOMMENDATION: Routine annual mammography screening. 1 year F/U This examination should not preclude the clinical evaluation of a suspicious palpable abnormality. This patient's information was entered into a reminder system with a target due date for their next mammogram. Electronically signed by: Yari Krishnamurthy DO 01/13/2025 10:09 AM MARY
--- OUTSIDE RECORDS SUMMARY | 2025-01-13 07:29 | XMS_ITS | Patient Health Record ---
Author Organization [facility] jc [place] Address [address] [facility] [place] [address] Care Team Providers Care Dynamite Packing Machine Operator Name Role Phone Armando SUE, Asma Primary Care Provider Lary Shaikh Unavailable [phone] Allergies Allergen (clinical drug ingredient) Drug/Non Drug [...] Notes Problem Plantar fasciitis of right foot (3562931885317 9101) Plantar fasciitis of right foot (M72.2) Active confirmed Vital Signs Blood pressure diastolic 70 mm Hg 11/30/2024 Height 5ft3in in 11/30/2024 Blood pressure systolic 120 mm Hg 11/30/2024 Weight 130 lbs 11/30/2024 BMI 23.03 kg/m2 11/30/2024 Encounters Encounter Location Date Provider Diagnosis [address] [address] 09/20/2024 Lary Perica Pain in right foot M79.671 ; Plantar fasciitis of right foot M72.2 ; Calcaneal spur, right foot M77.31 ; 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 [address] [address] 11/30/2024 Lary Santacruza Assessments Encounter Date Diagnosis [...] Coverage End Date Blue Benefits [address] [address] [place] [address] [id number] Deepali Savage Self - patient is the insured Medical (General) History Medical History History ICD Code Arthritis Back,Hip,and Knee pain Broken bones CAD (Cholesterol) skin cancer covid-19 Psoriasis/eczema Mumps Chicken pox Surgical History Surgery Date(Month/Year) umbilical hernia repair 1967 sinus surgery 1993 wisdom teeth extraction 1981
--- OUTSIDE RECORDS SUMMARY | 2025-01-13 07:29 | XMS_ITS ---
Author Organization Unknown ENCOUNTERS Encounter Performer Location Date Diagnosis Diagnosis Status Pre Admit [address] [id number] [address] [id number] [place] *Note: Encounters from your own facility or health system may be excluded. Allergies, Adverse Reactions, Alerts Allergen Type Severity Identification Date penicillin V drug allergy [id number] Medications Name Date Quantity Days Supplied GPI Number
--- OUTSIDE RECORDS SUMMARY | 2025-01-13 07:29 | XMS_ITS | Patient Health Record ---
Author Organization [facility] Address [address] [place] [address] Care Team Providers Care Property Investor Name Role Phone Raiza Garcia Primary Care Provider Suleman Yeager [phone] Allergies Allergen (clinical drug ingredient) Drug/Non Drug Allergy documented on EMR Reaction Allergy Type Onset Date Status Penicillin Unknown Drug Allergy Active Reason For Referral No Information Medications Medication SIG (Take, Route, Frequency, Duration) Notes Start Date End Date Status Claritin Active Social History Social History Additional Details Category Social Info Options Details Miscellaneous: Marital status: 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; no sig alcohol Problems Problem Type SNOMED Code ICD Code Onset Dates Problem Status W/U Status Risk Notes Problem Screening for malignant neoplasm of colon (478464522) Encounter for screening for malignant neoplasm of colon (Z12.11) Active confirmed Problem Screening for malignant neoplasm of rectum (741659396) Encounter for screening for malignant neoplasm of rectum (Z12.12) Active confirmed Problem Preprocedural examination (915591666271890) Preprocedural examination (Z01.818) Active confirmed Plan Of Treatment Future Test Test Name Order Date COLONOSCOPY 07/12/2015 Insurance Providers Payer Name Payer Address Payer Phone Subscriber Number Group Number Insured Name Patient Relationship to Insured Coverage Start Date Coverage End Date [facility] [address] [place] [phone] [id number] JEREMIAS DANIELS Self - patient is the insured Medical (General) History Medical History History ICD Code Denies [place],DM,CVA,Lung disease,renal dise ase Surgical History Surgery Date(Month/Year) umbilical hernia repair 1968 tonsillectomy 1969 wisdom teeth extraction 1981 sinus surgery 1992
== END 2025-01-13 07:27 | disposition home or self-care (01) ==
LOC: HO.MAMMO 07:26
PROVIDERS: PCP Internal Medicine; Visit Provider Internal Medicine
DX: Z12.31 Encounter for screening mammogram for malignant neoplasm of breast (principal)
CPT/HCPCS: 77063; 77067

== ENCOUNTER → 2025-01-13 07:30 | Outpatient (BNV) | payer OTHER, SELFPAY | PROVIDERS: PCP Internal Medicine; Visit Provider Internal Medicine | DX: Z12.31 Encounter for screening mammogram for malignant neoplasm of breast (principal) | CPT/HCPCS: 77063; 77067 ==